=== PATIENT | female | born 1960 | race Caucasian/White ===

== ENCOUNTER 2018-01-06 15:28 | Inpatient (IN) | payer BC, MEDICAID ==
[2018-01-06] MEDS ORDERED: Sodium Chloride 0.9% 1,000 ML IV ONE (16:18)
--- NOTE | 2018-01-06 16:22 | C.PDOC ---
History Of Present Illness 57 yr old female with PMHx of HTN, presents to the ER with complaints of epigastric/RUQ pain for the past 1 week. Patient states the pain is constant and denies any exacerbating or reliving factors. Patient states she was seen by her PMD 3 days ago and had a US done but is unsure of the results. Patient denies fever, chills, chest pain, SOB, nausea, vomiting, diarrhea, dysuria, incontinence, weakness or numbness. Time Seen by Provider: 01/06/18 16:07 Chief Complaint (Nursing): Abdominal Pain History Per: Patient History/Exam Limitations: no limitations Onset/Duration Of Symptoms: Days (1 week) Location Of Pain/Discomfort: RUQ, Epigastric Past Medical History Reviewed: Historical Data, Nursing Documentation, Vital Signs Vital Signs: Last Vital Signs Temp 99.4 F 01/06/18 15:50 Pulse 86 01/06/18 15:50 Resp 18 01/06/18 15:50 BP 163/90 H 01/06/18 15:50 Pulse Ox 98 01/06/18 18:42 - Medical History PMH: HTN - [facility] Procedures CLOSED ENDOSCOPIC BIOPSY OF LARGE INTESTINE (03/04/14) Family History: States: No Known Family Hx - Social History Hx Alcohol Use: No Hx Substance Use: No - Immunization History Hx Tetanus Toxoid Vaccination: No Hx Influenza Vaccination: No Hx Pneumococcal Vaccination: No Review Of Systems Except As Marked, All Systems Reviewed And Found Negative. Constitutional: Negative for: Fever, Chills Cardiovascular: Negative for: Chest Pain Respiratory: Negative for: Shortness of Breath Gastrointestinal: Positive for: Abdominal Pain (epigastric/RUQ pain). Negative for: Nausea, Vomiting, Diarrhea Genitourinary: Negative for: Dysuria, Incontinence Neurological: Negative for: Weakness, Numbness Physical Exam - Physical Exam Appears: Non-toxic, No Acute Distress Skin: Warm, Dry Head: Atraumatic, Normacephalic Eye(s): bilateral: Scleral Icterus Oral Mucosa: Moist Tongue: Other (+ yellowing under the tongue) Cardiovascular: No Murmur Respiratory: Normal Breath Sounds, No Rales, No Rhonchi, No Stridor, No Wheezing Gastrointestinal/Abdominal: Bowel Sounds (normal), Soft, Tenderness (epigastric) , No Distention, No Guarding, No Rebound, Other (+ Plata - McBurny) Extremity: Normal ROM, No Swelling Neurological/Psych: Oriented x3, Normal Speech ED Course And Treatment - Laboratory Results Result Diagrams: 01/06/18 17:01 01/06/18 17:01 ECG: Interpreted By Me, Viewed By Me ECG Rhythm: Sinus Rhythm Interpretation Of ECG: LVH. Left atrial enlargement. Nonspecific T wave changes. Rate From EC (BPM) O2 Sat by Pulse Oximetry: 98 (RA) Pulse Ox Interpretation: Normal - CT Scan/US US - Gallbladder Other Rad Studies (CT/US): Read By Radiologist, Radiology Report Reviewed CT/US Interpretation: HISTORY: ruq pain. COMPARISON: None available. TECHNIQUE: Sonographic evaluation of the right upper quadrant of the abdomen. FINDINGS: Examination limited by habitus. LIVER: Measures 19.3 cm in length. Echogenic liver may be seen in setting of hepatic parenchymal disease or fatty infiltration. 1.3 x 1.7 x 1.4 cm hypoechoic lesion within the left hepatic lobe , indeterminate. Main portal vein appears patent with normal directional flow. No intrahepatic bile duct dilatation. GALLBLADDER: Gallstones. Gallbladder sludge. Gallbladder wall appears top normal in thickness measuring approximately 3 mm. Trace pericholecystic edema. Negative sonographic Plata's sign as assessed by the biomedical engineering professor. COMMON BILE DUCT: Measures approximately 1 cm. PANCREAS: Not well-visualized. RIGHT KIDNEY: Measures 10.3 x 4.4 x 4.6 cm. No obstructing calculus or hydronephrosis identified. AORTA: Limited visualization appears grossly unremarkable. IVC: Limited visualization appears grossly unremarkable. OTHER FINDINGS: None . IMPRESSION: Examination limited by habitus. 1.3 x 1.7 x 1.4 cm hypoechoic lesion within the left hepatic lobe, indeterminate. Hepatomegaly. Echogenic liver may be seen in setting of hepatic parenchymal disease or fatty infiltration. Dilated common bile duct. Gallstones. Gallbladder sludge. Gallbladder wall appears top normal in thickness measuring approximately 3 mm. Trace pericholecystic edema. Correlate clinically for possibility of cholecystitis. CXR Other Rad Studies (CT/US): Read By Radiologist, Radiology Report Reviewed CT/US Interpretation: HISTORY: abd pain. COMPARISON: None available. TECHNIQUE: Chest, one view. FINDINGS: Examination limited by habitus. LUNGS : No focal consolidation. Please note that chest x-ray has limited sensitivity for the detection of pulmonary masses. PLEURA: No significant pleural effusion identified. No definite pneumothorax . CARDIOVASCULAR: Right hilar prominence. Heart size appears top normal. Atherosclerotic calcifications of the aorta. OSSEOUS STRUCTURES: Postsurgical changes of the right humeral head. VISUALIZED UPPER ABDOMEN: Unremarkable. OTHER FINDINGS: None. IMPRESSION: Right hilar prominence. Medical Decision Making Medical Decision Making: IMPRESSION: Abdominal pain PLAN: * US - Gallbladder * CXR * EKG * Labs * Pepcid ICP * Toradol IVP * Zofran IVP * Sodium Chloride IV NOTE: * Patient admitted under Dr. Lunsford. * Dr. Leonardo and surgical first assistant called. Disposition Discussed With : Mirlande Lunsford Doctor Will See Patient In The: Hospital Counseled Patient/Family Regarding: Studies Performed, Diagnosis - Disposition Disposition: HOSPITALIZED Disposition Time: 18:42 Condition: STABLE Forms: [facility] (Bangladeshi) - Clinical Impression Clinical Impression: Cholecystitis, Pancreatitis - Scribe Statement The provider has reviewed the documentation as recorded by the Jorge A Rangel Provider Attestation: All medical record entries made by the Jorge A were at my direction and personally dictated by me. I have reviewed the chart and agree that the record accurately reflects my personal performance of the history, physical exam, medical decision making, and the department course for this patient. I have also personally directed, reviewed, and agree with the discharge instructions and disposition.
--- NOTE | 2018-01-06 17:03 | RAD ---
HISTORY: abd pain COMPARISON: None available. TECHNIQUE: Chest, one view. FINDINGS: Examination limited by habitus. LUNGS: No focal consolidation. Please note that chest x-ray has limited sensitivity for the detection of pulmonary masses. PLEURA: No significant pleural effusion identified. No definite pneumothorax . CARDIOVASCULAR: Right hilar prominence. Heart size appears top normal. Atherosclerotic calcifications of the aorta. OSSEOUS STRUCTURES: Postsurgical changes of the right humeral head. VISUALIZED UPPER ABDOMEN: Unremarkable. OTHER FINDINGS: None. IMPRESSION: Right hilar prominence.
[2018-01-06] MEDS ORDERED: Sodium Chloride 0.9% 1,000 ML ONE (17:04)
[2018-01-06 17:05] LABS: BASO % 0.4 % (0.0-2.0); EOS # 0.1 K/uL (0.0-0.7); EOS % 0.7 % (0.0-4.0); HEMOGLOBIN 14.9 g/dL (11.0-16.0); LYMPH # 2.9 K/uL (1.0-4.3); LYMPH % 28.4 % (20.0-40.0); MEAN CELL VOLUME 94.4 fL (81.0-99.0); MEAN CORPUSCULAR HEMOGLOBIN 32.2 pg (27.0-31.0); MEAN CORPUSCULAR HGB CONC 34.1 g/dL (33.0-37.0); MEAN PLATELET VOLUME 9.6 fL (7.2-11.7); MONO # 0.7 K/uL (0.0-0.8); MONO % 7.1 % (0.0-10.0); NEUT # 6.6 K/uL (1.8-7.0); NEUT % 63.4 % (50.0-75.0); RBC 4.63 Mil/uL (3.80-5.20); RED CELL DISTRIBUTION WIDTH 15.1 % (11.5-14.5); WHITE BLOOD COUNT 10.4 K/uL (4.8-10.8)
[2018-01-06 17:19] LABS: ALB/GLOB RATIO 1.1 (1.0-2.1); ALBUMIN 4.2 g/dL (3.5-5.0); ALT/SGPT 517 U/L (9-52); AST/SGOT 289 U/L (14-36); BLOOD UREA NITROGEN 15 mg/dL (7-17); CALCIUM 9.5 mg/dl (8.6-10.4); GFR AFRICAN-AMERICAN > 60; GFR NON-AFRICAN AMERICAN > 60; LIPASE 1348 U/L (23-300)
--- NOTE | 2018-01-06 18:31 | US ---
HISTORY: ruq pain COMPARISON: None available. TECHNIQUE: Sonographic evaluation of the right upper quadrant of the abdomen. FINDINGS: Examination limited by habitus. LIVER: Measures 19.3 cm in length. Echogenic liver may be seen in setting of hepatic parenchymal disease or fatty infiltration. 1.3 x 1.7 x 1.4 cm hypoechoic lesion within the left hepatic lobe, indeterminate. Main portal vein appears patent with normal directional flow. No intrahepatic bile duct dilatation. GALLBLADDER: Gallstones. Gallbladder sludge. Gallbladder wall appears top normal in thickness measuring approximately 3 mm. Trace pericholecystic edema. Negative sonographic Plata's sign as assessed by the undercutter. COMMON BILE DUCT: Measures approximately 1 cm. PANCREAS: Not well-visualized. RIGHT KIDNEY: Measures 10.3 x 4.4 x 4.6 cm. No obstructing calculus or hydronephrosis identified. AORTA: Limited visualization appears grossly unremarkable. IVC: Limited visualization appears grossly unremarkable. OTHER FINDINGS: None . IMPRESSION: Examination limited by habitus. 1.3 x 1.7 x 1.4 cm hypoechoic lesion within the left hepatic lobe, indeterminate. Hepatomegaly. Echogenic liver may be seen in setting of hepatic parenchymal disease or fatty infiltration. Dilated common bile duct. Gallstones. Gallbladder sludge. Gallbladder wall appears top normal in thickness measuring approximately 3 mm. Trace pericholecystic edema. Correlate clinically for possibility of cholecystitis.
[2018-01-06 18:40] LABS: SQUAMOUS EPITHIAL 1 /hpf (0-5); URINE BACTERIA RARE (<OCC); URINE BILIRUBIN NEGATIVE (NEGATIVE); URINE BLOOD NEGATIVE (NEGATIVE); URINE CLARITY Clear (Clear); URINE COLOR Yellow (YELLOW); URINE GLUCOSE (UA) NORMAL (Normal); URINE LEUKOCYTE ESTERASE NEG Leu/uL (Negative); URINE PROTEIN NEGATIVE (NEGATIVE); URINE UROBILINOGEN NORMAL mg/dL (0.2-1.0)
[2018-01-06] MEDS ORDERED: Piperacillin/Tazobact 3.375 GM in Sodium Chloride 100 ML IVPB STA (18:44)
[2018-01-06] MEDS ORDERED: Piperacillin/Tazobact 3.375 gm 100 ML IVPB ONE (18:49)
--- NOTE | 2018-01-06 20:09 | CP.PCM.HP ---
History of Present Illness - History of Present Illness History of Present Illness: COMPREHENSIVE HISTORY & PHYSICAL EXAM HPI FOR FEW DAYS PT. IS C/O EPIGASTRIC PAIN RADIATING TO LEFT UPPER QUADRANT . PAIN IS CONSTANT WITH GRADE 7 (1-10) A/W NAUSEA AND VOMITING PAIN RELIEVED WITH PO ANALGESICS CT OF ABD SHOWED GALL STONES/SLUDGE AND PERICOLIC FLUID PAST HIST. HTN PERSONAL HIST: Smoking. N Alcohol. N Allergy N Travel_- . FAMILY HIST : ROS : Constitutional: Negative for weight change, chills, night sweats, fatigue and usage of assist device. Eyes: Negative for redness, swelling, itching, discharge, vision changes, blurry vision, double vision, glaucoma, cataracts, Ears: Negative for hearing loss, ringing, , tinnitus, vertigo Nose: Negative for rhinorrhea, stuffiness, sniffing, itching, postnasal drip, discoloration, nasal congestion and epistaxis. Throat: Negative for throat clearing, sore throat, hoarseness, difficulty swallowing and difficulty speaking. Respiratory: Negative for cough, , sputum production, chest tightness, wheezing, pleuritic chest pain ,daytime somnolence, chronic cough, hemoptysis, snoring at night, Cardiovascular: Negative for chest pain, palpitations, orthopnea, PND, Edema of legs, leg cramps, angina, claudication, , irregular heartbeat, Neurology: Negative for irritability, muscle weakness, numbness and tingling, seizures, tremors, migraines, slurred speech, syncope, memory loss, mood changes , recurrent headaches Gastrointestinal: Negative for difficulty swallowing, diarrhea, constipation, black stools, rectal bleeding, POS nausea, flatulence, reflux, poor appetite, NO changes in bowel habits, POS abdominal pain Genitourinary: Negative for frequent urination, hematuria, discharge, incontinence, urinary retention, frequent UTI, Psychiatric: Negative for depression, anxiety/panic, suicidal tendencies, Musculoskeletal: Negative for swollen joints, back pain, , neck pain, morning stiffness of joints, . Skin: Negative for rash, ulcers, itching, dry skin and pigmented lesions. P/E: Constitutional: Appears stated age and in no apparent distress. Head: Normocephalic. Ears: External ear canals patent without inflammation. Tympanic membranes intact with normal light reflex and landmark. Eyes: Pupils are central, bilaterally equal, symmetrical and reacts to light with normal movements and no icterus or pallor. Nose: External nares are patent. Mucosa is pink Mouth-Throat: Good general appearance and condition. No post-pharyngeal/oropharyngeal erythema and tonsillar hypertrophy. Good dental hygiene. Neck-Lymphatic: Neck is supple with normal ROM, no thyromegaly, lymph nodes or masses. JVD is normal with no carotid bruit. Lungs: Clear to percussion and auscultation with bilateral normal air entry. Cardiovascular: S1 and S2 are normal with no murmurs, gallops and rub. GI Exam: No hepatomegaly. Abdomen is soft and RUQ tender. No Organomegaly , masses or hernias are evident and bowel sounds are normal and active. Neurology: Higher function and all cranial nerves intact, with no gross motor or sensory deficit. Superficial and deep reflexes are normal with downwards planters. No cerebellar deficit with normal gait. Musculoskeletal: No tender spots with normal curvature of the spine with no swelling or restricted ROM of the small and large joints. Extremities: Homans sign absent. Intact pulses with no pitting edema, calf tenderness or skin color changes. Skin: No rash, eruptions or abnormal skin pigmentation LAB/RADIOLOGY: ASSESMENT : ACUTE CHOLECYSTITIS WITH GALL STONE PLAN: NPO/IV FLUID/AB PER SURGERY Present on Admission - Present on Admission Any Indicators Present on Admission: No Past Patient History - Infectious Disease Hx of Infectious Diseases: None - Past Social History Smoking Status: Never Smoked - CARDIAC Hx Hypertension: Yes - PSYCHIATRIC Hx Substance Use: No - SURGICAL HISTORY Hx Surgeries: Yes Hx Section: Yes (x 1 1998) Other/Comment: hx of right shoulder surgery - ANESTHESIA Hx Anesthesia: Yes Hx Anesthesia Reactions: No Hx Malignant Hyperthermia: No Meds Allergies/Adverse Reactions: Allergies Allergy/AdvReac Type Severity Reaction Status Date / Time No Known Allergies Allergy Verified 01/06/18 15:57 Results - Vital Signs Recent Vital Signs: Last Vital Signs Temp 99.4 F 01/06/18 15:50 Pulse 86 01/06/18 15:50 Resp 18 01/06/18 15:50 BP 163/90 H 01/06/18 15:50 Pulse Ox 98 01/06/18 18:44 - Labs Result Diagrams: 01/07/18 07:05 01/07/18 07:05 Labs: Laboratory Results - last 24 hr 01/06/18 01/06/18 01/06/18 17:01 17:01 17:01 WBC 10.4 RBC 4.63 Hgb 14.9 Hct 43.7 MCV 94.4 MCH 32.2 H MCHC 34.1 RDW 15.1 H Plt Count 206 MPV 9.6 Neut % (Auto) 63.4 Lymph % (Auto) 28.4 [place] % (Auto) 7.1 Eos % (Auto) 0.7 Baso % (Auto) 0.4 Neut # (Auto) 6.6 Lymph # (Auto) 2.9 [place] # (Auto) 0.7 Eos # (Auto) 0.1 Baso # (Auto) 0.0 Sodium 139 Potassium 3.9 Chloride 98 Carbon Dioxide 26 Anion Gap 20 BUN 15 Creatinine 0.8 Est GFR ( Amer) > 60 Est GFR (Non-Af Amer) > 60 Random Glucose 108 H Lactic Acid 1.7 Calcium 9.5 Total Bilirubin 5.3 H AST 289 H ALT 517 H Alkaline Phosphatase 290 H Troponin I < 0.0120 Total Protein 8.2 Albumin 4.2 Globulin 4.0 H Albumin/Globulin Ratio 1.1 Lipase 1348 H Urine Color Urine Clarity Urine pH Ur Specific [place] Urine Protein Urine Glucose (UA) Urine Ketones Urine Blood Urine Nitrate Urine Bilirubin Urine Urobilinogen Ur Leukocyte Esterase Urine WBC (Auto) Urine RBC (Auto) Ur Squamous Epith Cells Urine Bacteria 01/06/18 18:34 WBC RBC Hgb Hct MCV MCH MCHC RDW Plt Count MPV Neut % (Auto) Lymph % (Auto) [place] % (Auto) Eos % (Auto) Baso % (Auto) Neut # (Auto) Lymph # (Auto) [place] # (Auto) Eos # (Auto) Baso # (Auto) Sodium Potassium Chloride Carbon Dioxide Anion Gap BUN Creatinine Est GFR ( Amer) Est GFR (Non-Af Amer) Random Glucose Lactic Acid Calcium Total Bilirubin AST ALT Alkaline Phosphatase Troponin I Total Protein Albumin Globulin Albumin/Globulin Ratio Lipase Urine Color Yellow Urine Clarity Clear Urine pH 6.0 Ur Specific [place] 1.006 Urine Protein Negative Urine Glucose (UA) Normal Urine Ketones Negative Urine Blood Negative Urine Nitrate Negative Urine Bilirubin Negative Urine Urobilinogen Normal Ur Leukocyte Esterase Neg Urine WBC (Auto) 3 Urine RBC (Auto) < 1 Ur Squamous Epith Cells 1 Urine Bacteria Rare
--- NOTE | 2018-01-06 20:52 | CP.PCM.CON ---
History of Present Illness - History of Present Illness History of Present Illness: INFECTIOUS DISEASE CONSULT; HPI; 57-year-old female with no past significant medical history except for hypertension who was admitted 01/06/18 with abdominal pains for the last one week. Pain described was sharp and epigastric in nature with some radiation to the left side/flank and hip. Patient states she denies any nausea vomiting or diarrhea or constipation. No sets previous episodes in the past. Patient has history of 18 years ago and right shoulder surgery. Patient denies any fever or chills. Admits to poor appetite and headache. Patient denies any cough, shortness of breath, chest pain. Patient was given a dose of Zosyn 3.375 while in the ER. Blood cultures were obtained. Patient was found to be icteric with total bilirubin of 5.3, AST of 299, ALT 517 , alkaline phosphatase 290. Serum lipase was 1348. Abdominal ultrasound showed hepatomegaly dilated CBD , gallstones and trace pericholecystic edema suggestive of cholecystitis. Chest x-ray was unremarkable except for right hilar prominence. Infectious disease consultation requested by PMD for gallstone pancreatitis/and acute cholecystitis. PMH: HTN PSH: x 1, R shoulder surgery All: NKDA SH: Rare ETOH use, denies tobacco or illicit drug use FH: Gallstones (mother) Review of Systems - Constitutional Constitutional: absent: Chills, Fever - EENT Eyes: absent: Change in Vision Nose/Mouth/Throat: Dry Mouth. absent: Mouth Lesions, Odynophagia, Sore Throat - Breasts Breasts: As Per HPI - Cardiovascular Cardiovascular: absent: Chest Pain, Leg Edema, Syncope - Respiratory Respiratory: absent: Cough, Hemoptysis - Gastrointestinal Gastrointestinal: Abdominal Pain (EPIGASTRIC AND LUQ.). absent: Constipation, Diarrhea, Nausea, Vomiting - Genitourinary Genitourinary: absent: Dysuria, Pyuria, Urinary Frequency - Menstruation Menstruation: Post Menopausal - Musculoskeletal Musculoskeletal: absent: Arthralgias, Back Pain - Neurological Neurological: Headaches, Weakness - Endocrine Endocrine: Fatigue - Hematologic/Lymphatic Hematologic: As Per HPI. absent: Lymphadenopathy Past Patient History - Infectious Disease Hx of Infectious Diseases: None - Past Social History Smoking Status: Never Smoked - CARDIAC Hx Hypertension: Yes - PSYCHIATRIC Hx Substance Use: No - SURGICAL HISTORY Hx Surgeries: Yes Hx Section: Yes (x 1 1998) Other/Comment: hx of right shoulder surgery - ANESTHESIA Hx Anesthesia: Yes Hx Anesthesia Reactions: No Hx Malignant Hyperthermia: No Meds Allergies/Adverse Reactions: Allergies Allergy/AdvReac Type Severity Reaction Status Date / Time No Known Allergies Allergy Verified 01/06/18 15:57 Physical Exam - Constitutional Appears: No Acute Distress - Head Exam Head Exam: NORMAL INSPECTION - Eye Exam Eye Exam: EOMI, Scleral icterus - ENT Exam ENT Exam: Normal Oropharynx - Respiratory Exam Respiratory Exam: Clear to Auscultation Bilateral - Cardiovascular Exam Cardiovascular Exam: REGULAR RHYTHM, +S1, +S2 - GI/Abdominal Exam GI & Abdominal Exam: Normal Bowel Sounds, Soft, Tenderness (EPIGASTRIC AND LEFT UPPER QUADRANT, NO MASS PALPABLE). absent: Distended, Organomegaly - Extremities Exam Extremities exam: Positive for: pedal pulses present. Negative for: calf tenderness, pedal edema - Neurological Exam Neurological exam: Alert, CN II-XII Intact, Oriented x3, Reflexes Normal - Skin Skin Exam: Normal Color, Warm Results - Vital Signs Recent Vital Signs: Last Vital Signs Temp 98.6 F 01/06/18 20:34 Pulse 78 01/06/18 20:34 Resp 16 01/06/18 20:34 BP 149/82 01/06/18 20:34 Pulse Ox 97 01/06/18 20:34 - Labs Result Diagrams: 01/08/18 07:04 01/08/18 07:04 Labs: Laboratory Results - last 24 hr 01/06/18 01/06/18 01/06/18 17:01 17:01 17:01 WBC 10.4 RBC 4.63 Hgb 14.9 Hct 43.7 MCV 94.4 MCH 32.2 H MCHC 34.1 RDW 15.1 H Plt Count 206 MPV 9.6 Neut % (Auto) 63.4 Lymph % (Auto) 28.4 [place] % (Auto) 7.1 Eos % (Auto) 0.7 Baso % (Auto) 0.4 Neut # (Auto) 6.6 Lymph # (Auto) 2.9 [place] # (Auto) 0.7 Eos # (Auto) 0.1 Baso # (Auto) 0.0 Sodium 139 Potassium 3.9 Chloride 98 Carbon Dioxide 26 Anion Gap 20 BUN 15 Creatinine 0.8 Est GFR ( Amer) > 60 Est GFR (Non-Af Amer) > 60 Random Glucose 108 H Lactic Acid 1.7 Calcium 9.5 Total Bilirubin 5.3 H AST 289 H ALT 517 H Alkaline Phosphatase 290 H Troponin I < 0.0120 Total Protein 8.2 Albumin 4.2 Globulin 4.0 H Albumin/Globulin Ratio 1.1 Lipase 1348 H Urine Color Urine Clarity Urine pH Ur Specific [place] Urine Protein Urine Glucose (UA) Urine Ketones Urine Blood Urine Nitrate Urine Bilirubin Urine Urobilinogen Ur Leukocyte Esterase Urine WBC (Auto) Urine RBC (Auto) Ur Squamous Epith Cells Urine Bacteria 01/06/18 18:34 WBC RBC Hgb Hct MCV MCH MCHC RDW Plt Count MPV Neut % (Auto) Lymph % (Auto) [place] % (Auto) Eos % (Auto) Baso % (Auto) Neut # (Auto) Lymph # (Auto) [place] # (Auto) Eos # (Auto) Baso # (Auto) Sodium Potassium Chloride Carbon Dioxide Anion Gap BUN Creatinine Est GFR ( Amer) Est GFR (Non-Af Amer) Random Glucose Lactic Acid Calcium Total Bilirubin AST ALT Alkaline Phosphatase Troponin I Total Protein Albumin Globulin Albumin/Globulin Ratio Lipase Urine Color Yellow Urine Clarity Clear Urine pH 6.0 Ur Specific [place] 1.006 Urine Protein Negative Urine Glucose (UA) Normal Urine Ketones Negative Urine Blood Negative Urine Nitrate Negative Urine Bilirubin Negative Urine Urobilinogen Normal Ur Leukocyte Esterase Neg Urine WBC (Auto) 3 Urine RBC (Auto) < 1 Ur Squamous Epith Cells 1 Urine Bacteria Rare - Imaging and Cardiology US - abdomen Status: Report reviewed by me (SEE REPORT.) Assessment & Plan (1) Abdominal pain Status: Acute (2) Cholecystitis Status: Acute (3) Pancreatitis Status: Acute - Assessment and Plan (Free Text) Assessment: IMPRESSION; . ABDOMINAL PAIN. . ACUTE CHOLECYSTITIS. . GALLSTONE ASSOCIATED PANCREATITIS. . HTN. PLAN; PANCULTURES cbc WITH DIFFERENTIAL IN A.M. HEPATITIS PANEL IN AM fOLLOW-UP LFTS. AM SERUM AMYLASE AND LIPASE IN A.M. NPO. START iv CEFEPIME 1 G iv PIGGYBACK EVERY 12 HOURLY 01/06/18. GALLBLADDER ULTRASOUND IN PROGRESS. SURGICAL CONSULT IN PROGRESS. WE'LL FOLLOW ALONG WITH YOU AND MAKE FURTHER RECOMMENDATIONS NEEDED.
--- NOTE | 2018-01-06 21:29 | CP.PCM.CON ---
<Sheree Schumacher - Last Filed: 01/07/18 14:32> History of Present Illness - History of Present Illness History of Present Illness: General surgery consult for Dr. Jim Schumacher, PGY-1 Pt S & E at bedside. 57F w/PMH sig for HTN consulted for abdominal pain x 8 days. Pain was epigastric with radiation to left side/flank/hip. Pain was constant, severe, alleviated by pain medications. Admits to poor appetite, headache. Denies N & V , F & C, constipation, diarrhea, chest pain, other complaints. IN ED Ab u/s w/dilated CBD, trace pericholecystic fluid, no GB wall thickening, T bili 5.3, AST 289, ALT 517, ALP 290, lipase 1348. No leukocytosis, afebrile. PMH: HTN PSH: x 1, R shoulder surgery All: NKDA SH: Rare ETOH use, denies tobacco or illicit drug use FH: Gallstones (mother) Review of Systems - Review of Systems All systems: reviewed and no additional remarkable complaints except - Constitutional Constitutional: absent: Chills, Fever - EENT Eyes: absent: Change in Vision Nose/Mouth/Throat: absent: Sore Throat - Cardiovascular Cardiovascular: absent: Chest Pain - Respiratory Respiratory: absent: Cough - Gastrointestinal Gastrointestinal: Abdominal Pain. absent: Constipation, Diarrhea, Nausea, Vomiting - Genitourinary Genitourinary: absent: Change in Urinary Stream - Integumentary Integumentary: absent: Rash - Psychiatric Psychiatric: Change in Appetite (decreased) Past Patient History - Infectious Disease Hx of Infectious Diseases: None - Past Social History Smoking Status: Never Smoked - CARDIAC Hx Hypertension: Yes - PSYCHIATRIC Hx Substance Use: No - SURGICAL HISTORY Hx Surgeries: Yes Hx Section: Yes (x 1 1998) Other/Comment: hx of right shoulder surgery - ANESTHESIA Hx Anesthesia: Yes Hx Anesthesia Reactions: No Hx Malignant Hyperthermia: No Meds Home Medications: Home Medication List Medication Instructions Recorded Confirmed Type Acetaminophen [Tylenol 325mg tab] 650 mg PO Q6 PRN tab 01/10/18 Rx traMADol [Ultram] 50 mg PO TID PRN #10 tab 01/10/18 Rx Allergies/Adverse Reactions: Allergies Allergy/AdvReac Type Severity Reaction Status Date / Time No Known Allergies Allergy Verified 01/06/18 15:57 - Medications Medications: Current Medications Cefepime HCl (Maxipime Iv 1 Gm Premix) 1 gm in 50 mls @ 100 mls/hr IVPB Q12H [facility] PRN Reason: Protocol Physical Exam - Constitutional Appears: Non-toxic, No Acute Distress - Head Exam Head Exam: ATRAUMATIC, NORMAL INSPECTION, NORMOCEPHALIC - Eye Exam Eye Exam: EOMI, Normal appearance - ENT Exam ENT Exam: Mucous Membranes Moist, Normal Exam - Neck Exam Neck exam: Positive for: Full Rom, Normal Inspection - Respiratory Exam Respiratory Exam: Clear to Auscultation Bilateral, NORMAL BREATHING PATTERN - Cardiovascular Exam Cardiovascular Exam: REGULAR RHYTHM, +S1, +S2 - GI/Abdominal Exam GI & Abdominal Exam: Normal Bowel Sounds, Soft. absent: Distended (obese), Firm , Guarding, Tenderness - Extremities Exam Extremities exam: Positive for: normal inspection - Neurological Exam Neurological exam: Alert, CN II-XII Intact, Oriented x3 - Psychiatric Exam Psychiatric exam: Normal Affect, Normal Mood - Skin Skin Exam: Dry, Intact, Normal Color, Warm Results - Vital Signs Recent Vital Signs: Last Vital Signs Temp 98.6 F 01/06/18 20:34 Pulse 78 01/06/18 20:34 Resp 16 01/06/18 20:34 BP 149/82 01/06/18 20:34 Pulse Ox 97 01/06/18 20:34 - Labs Result Diagrams: 01/06/18 17:01 01/06/18 17:01 Labs: Laboratory Results - last 24 hr 01/06/18 01/06/18 01/06/18 17:01 17:01 17:01 WBC 10.4 RBC 4.63 Hgb 14.9 Hct 43.7 MCV 94.4 MCH 32.2 H MCHC 34.1 RDW 15.1 H Plt Count 206 MPV 9.6 Neut % (Auto) 63.4 Lymph % (Auto) 28.4 [place] % (Auto) 7.1 Eos % (Auto) 0.7 Baso % (Auto) 0.4 Neut # (Auto) 6.6 Lymph # (Auto) 2.9 [place] # (Auto) 0.7 Eos # (Auto) 0.1 Baso # (Auto) 0.0 Sodium 139 Potassium 3.9 Chloride 98 Carbon Dioxide 26 Anion Gap 20 BUN 15 Creatinine 0.8 Est GFR ( Amer) > 60 Est GFR (Non-Af Amer) > 60 Random Glucose 108 H Lactic Acid 1.7 Calcium 9.5 Total Bilirubin 5.3 H AST 289 H ALT 517 H Alkaline Phosphatase 290 H Troponin I < 0.0120 Total Protein 8.2 Albumin 4.2 Globulin 4.0 H Albumin/Globulin Ratio 1.1 Lipase 1348 H Urine Color Urine Clarity Urine pH Ur Specific [place] Urine Protein Urine Glucose (UA) Urine Ketones Urine Blood Urine Nitrate Urine Bilirubin Urine Urobilinogen Ur Leukocyte Esterase Urine WBC (Auto) Urine RBC (Auto) Ur Squamous Epith Cells Urine Bacteria 01/06/18 18:34 WBC RBC Hgb Hct MCV MCH MCHC RDW Plt Count MPV Neut % (Auto) Lymph % (Auto) [place] % (Auto) Eos % (Auto) Baso % (Auto) Neut # (Auto) Lymph # (Auto) [place] # (Auto) Eos # (Auto) Baso # (Auto) Sodium Potassium Chloride Carbon Dioxide Anion Gap BUN Creatinine Est GFR ( Amer) Est GFR (Non-Af Amer) Random Glucose Lactic Acid Calcium Total Bilirubin AST ALT Alkaline Phosphatase Troponin I Total Protein Albumin Globulin Albumin/Globulin Ratio Lipase Urine Color Yellow Urine Clarity Clear Urine pH 6.0 Ur Specific [place] 1.006 Urine Protein Negative Urine Glucose (UA) Normal Urine Ketones Negative Urine Blood Negative Urine Nitrate Negative Urine Bilirubin Negative Urine Urobilinogen Normal Ur Leukocyte Esterase Neg Urine WBC (Auto) 3 Urine RBC (Auto) < 1 Ur Squamous Epith Cells 1 Urine Bacteria Rare Assessment & Plan - Assessment and Plan (Free Text) Assessment: 57F w/abdominal pain 2/2 gallstone pancreatitis Plan: IVF Pain control NPO Monitor LFTs recommend GI consult Further recs as per attending evaluation DW attending Winsome, PGY-1 - Date & Time Date: 01/06/18 Time: 21:28 <Garry Leonardo - Last Filed: 01/11/18 19:51> Results - Vital Signs Recent Vital Signs: Last Vital Signs Temp 98.1 F 01/10/18 15:15 Pulse 81 01/10/18 15:15 Resp 20 01/10/18 15:15 BP 156/82 H 01/10/18 15:15 Pulse Ox 97 01/10/18 15:15 - Labs Result Diagrams: 01/10/18 07:42 01/10/18 07:42 Attending/Attestation - Attestation I have personally seen and examined this patient.: Yes I have fully participated in the care of the patient.: Yes I have reviewed all pertinent clinical information: Yes Notes (Text): Pt was seen and examined at bedside Agree with above note and assessment Pt with Right upper quadrant pain Abdomen: Soft ,NT, RUQ tenderness Labs and radiology reviewed Ass: GS pancreatitis Plan: Conservative management at present NPO, IVF IV antibiotics GI consult c.w current mx Plan d.w pt in detail Risk and benefit explained in detail.
[2018-01-06] MEDS: Lactated Ringer's 1,000 ML IV SCH (22:05)
[2018-01-06] MEDS: Cefepime IV 1 gm in Dextrose 1 GM/50 ML BAG IVPB SCH (22:40)
[2018-01-07] MEDS: Lactated Ringer's 1,000 ML IV SCH ×3 (02:16→11:01)
--- NOTE | 2018-01-07 05:17 | CP.PCM.PN ---
<Sheree Schumacher - Last Filed: 01/07/18 14:32> Subjective - Date & Time of Evaluation Date of Evaluation: 01/07/18 Time of Evaluation: 07:15 - Subjective Subjective: General surgery progress note for Dr. Leonardo-Sheree Schumacher, PGY-1 Pt S & E at bedside. Pt reports continued epigastric abdominal pain- no improvement. Denies N & V, F & C. No other complaints overnight. Objective - Vital Signs/Intake and Output Vital Signs (last 24 hours): Temp Pulse Resp BP Pulse Ox 99.1 F 88 20 144/80 95 01/07/18 00:00 01/07/18 00:00 01/07/18 00:00 01/07/18 00:00 01/07/18 00:00 Intake and Output: 01/06/18 01/07/18 18:59 06:59 Intake Total 210 Balance 210 - Medications Medications: Current Medications Acetaminophen (Tylenol 325mg Tab) 650 mg PO Q6 PRN PRN Reason: Pain, moderate (4-7) Cefepime HCl (Maxipime Iv 1 Gm Premix) 1 gm in 50 mls @ 100 mls/hr IVPB Q12H [facility] PRN Reason: Protocol Last Admin: 01/06/18 22:40 Dose: 100 mls/hr Lactated Ringer's (Lactated Ringer's) 1,000 mls @ 210 mls/hr IV .Q4H46M [facility] Last Admin: 01/06/18 22:05 Dose: 210 mls/hr Ketorolac Tromethamine (Toradol) 30 mg IVP Q6 PRN PRN Reason: Pain, severe (8-10) Metoprolol Succinate (Toprol Xl) 100 mg PO DAILY [facility] Pneumococcal Polyvalent Vaccine (Pneumovax 23 Vaccine) 0.5 ml IM .ONCE ONE Stop: 01/09/18 10:01 - Labs Labs: 01/06/18 17:01 01/06/18 17:01 - Constitutional Appears: Non-toxic, No Acute Distress - Head Exam Head Exam: ATRAUMATIC, NORMAL INSPECTION, NORMOCEPHALIC - Eye Exam Eye Exam: EOMI, Normal appearance - ENT Exam ENT Exam: Mucous Membranes Moist, Normal Exam - Neck Exam Neck Exam: Full ROM, Normal Inspection - Respiratory Exam Respiratory Exam: NORMAL BREATHING PATTERN - Cardiovascular Exam Cardiovascular Exam: REGULAR RHYTHM, +S1, +S2 - GI/Abdominal Exam GI & Abdominal Exam: Soft, Tenderness (epigastric). absent: Distended (obese), Firm, Guarding, Rigid, Rebound - Extremities Exam Extremities Exam: Normal Inspection - Neurological Exam Neurological Exam: Alert, Awake, CN II-XII Intact, Oriented x3 - Psychiatric Exam Psychiatric exam: Normal Affect, Normal Mood - Skin Skin Exam: Dry, Intact, Normal Color, Warm Assessment and Plan - Assessment and Plan (Free Text) Assessment: 57F w/gallstone pancreatitis Plan: Cont IVF Cont Pain control NPO FU CMP-Monitor LFTs recommend GI consult Further recs as per attending evaluation Will DW attending Winsome, PGY-1 <Garry Leonardo - Last Filed: 01/11/18 19:50> Objective - Vital Signs/Intake and Output Vital Signs (last 24 hours): Temp Pulse Resp BP Pulse Ox 98.1 F 81 20 156/82 H 97 01/10/18 15:15 01/10/18 15:15 01/10/18 15:15 01/10/18 15:15 01/10/18 15:15 - Labs Labs: 01/10/18 07:42 01/10/18 07:42 PT 12.3 SECONDS (9.7-12.2) H 01/08/18 10:49 INR 1.1 01/08/18 10:49 APTT 32 SECONDS (21-34) 01/08/18 10:49 Attending/Attestation - Attestation I have personally seen and examined this patient.: Yes I have fully participated in the care of the patient.: Yes I have reviewed all pertinent clinical information, including history, physical exam and plan: Yes Notes (Text): Pt was seen and examined at bedside Agree with above note and assessment Pt with GS pancreatitis, improving clinically Labs improving NPO, IVF IV antibiotics c.w current mx Plan d.w pt in detail Risk and benefit explained in detail.
[2018-01-07 07:22] LABS: BASO % 0.4 % (0.0-2.0); EOS # 0.1 K/uL (0.0-0.7); EOS % 0.8 % (0.0-4.0); HEMOGLOBIN 13.3 g/dL (11.0-16.0); LYMPH # 1.9 K/uL (1.0-4.3); MEAN CELL VOLUME 94.4 fL (81.0-99.0); MEAN CORPUSCULAR HGB CONC 33.9 g/dL (33.0-37.0); MEAN PLATELET VOLUME 9.3 fL (7.2-11.7); MONO # 0.5 K/uL (0.0-0.8); MONO % 7.4 % (0.0-10.0); NEUT # 4.6 K/uL (1.8-7.0); NEUT % 64.4 % (50.0-75.0); RBC 4.15 Mil/uL (3.80-5.20); RED CELL DISTRIBUTION WIDTH 14.6 % (11.5-14.5); WHITE BLOOD COUNT 7.2 K/uL (4.8-10.8)
[2018-01-07 08:02] LABS: ALB/GLOB RATIO 1.1 (1.0-2.1); ALBUMIN 3.4 g/dL (3.5-5.0); ALT/SGPT 381 U/L (9-52); AST/SGOT 178 U/L (14-36); BLOOD UREA NITROGEN 13 mg/dL (7-17); CALCIUM 8.7 mg/dl (8.6-10.4); GFR AFRICAN-AMERICAN > 60; GFR NON-AFRICAN AMERICAN > 60; LIPASE 584 U/L (23-300)
[2018-01-07 08:27] LABS: HEPATITIS B SURFACE AG Negative (NEGATIVE)
[2018-01-07 08:32] LABS: HEPATITIS A IGM NEGATIVE (NEGATIVE); HEPATITIS B CORE AB NEGATIVE (NEGATIVE)
[2018-01-07 08:44] LABS: HEPATITIS C ANTIBODY NEGATIVE (NEGATIVE)
[2018-01-07 08:48] LABS: HEPATITIS C ANTIBODY NEGATIVE (NEGATIVE)
[2018-01-07] MEDS: Metoprolol Succinate 100 mg XL Tab PO SCH (09:11)
[2018-01-07] MEDS: Cefepime IV 1 gm in Dextrose 1 GM/50 ML BAG IVPB SCH ×2 (09:18→21:49)
--- NOTE | 2018-01-07 14:27 | CP.PCM.PN ---
Subjective - Date & Time of Evaluation Date of Evaluation: 01/07/18 Time of Evaluation: 14:25 - Subjective Subjective: CHIEF COMPLAINTS TODAY : PAIN RUQ , NAUSEA ROS. HEENT : N. Resp : No cough, wheezing ,pleuritic CP ,or hemoptysis Cardio : No anginal CP, PND, orthopnea, palpitation GI : No diarrhea or GI bleeding . 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 Musculoskel : No joint swelling , Derm : No rash Psych : Normal affect. Ext : No swelling ,calf pain PE. Pt. is alert awake in no distress. V.S As noted in the chart Head ,ear nose,throat and eyes : Normal. Neck : Supple with normal carotids. Lungs: Clear air entry. Heart : S1 & S2 normal with S4. No murmur. Abd : Soft tender with normal bowel sounds. Neuro : Moves all ext. with no localized deficit. Ext : No edema with intact pulses.Non tender calves Derm : No rashes or decubitus ulcer. LABS/RADIOLOGY: ASSESSMENT/PLAN : AWAITING SURGICAL EVAL FOR OR IV AB Objective - Vital Signs/Intake and Output Vital Signs (last 24 hours): Temp Pulse Resp BP Pulse Ox 98.8 F 81 20 138/80 95 01/07/18 08:28 01/07/18 08:28 01/07/18 08:28 01/07/18 08:28 01/07/18 08:28 Intake and Output: 01/07/18 01/07/18 11:59 23:59 Intake Total 1890 1680 Balance 1890 1680 - Medications Medications: Current Medications Acetaminophen (Tylenol 325mg Tab) 650 mg PO Q6 PRN PRN Reason: Pain, moderate (4-7) Cefepime HCl (Maxipime Iv 1 Gm Premix) 1 gm in 50 mls @ 100 mls/hr IVPB Q12H [facility] PRN Reason: Protocol Last Admin: 01/07/18 09:18 Dose: 100 mls/hr Lactated Ringer's (Lactated Ringer's) 1,000 mls @ 210 mls/hr IV .Q4H46M [facility] Last Admin: 01/07/18 11:01 Dose: 210 mls/hr Ketorolac Tromethamine (Toradol) 30 mg IVP Q6 PRN PRN Reason: Pain, severe (8-10) Metoprolol Succinate (Toprol Xl) 100 mg PO DAILY [facility] Last Admin: 01/07/18 09:11 Dose: 100 mg Pneumococcal Polyvalent Vaccine (Pneumovax 23 Vaccine) 0.5 ml IM .ONCE ONE Stop: 01/09/18 10:01 - Labs Labs: 01/07/18 07:05 01/07/18 07:05
[2018-01-07] MEDS: Dextrose 5%/0.45% NS 1,000 ML IV SCH ×2 (16:22→22:25)
--- NOTE | 2018-01-07 19:56 | CP.PCM.PN ---
Subjective - Date & Time of Evaluation Date of Evaluation: 01/07/18 Time of Evaluation: 19:56 - Subjective Subjective: CHIEF COMPLAINTS TODAY : AFEBRILE , presently denies abdominal pain, nausea or vomiting Anxious to eat. NPO PER SURGERY. ROS. HEENT : N. Resp : No cough, wheezing ,pleuritic CP ,or hemoptysis Cardio : No anginal CP, PND, orthopnea, palpitation GI : No abd.pain, n/v ,diarrhea or GI bleeding . 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 Musculoskel : No joint swelling , Derm : No rash Psych : Normal affect. Ext : No swelling ,calf pain PE. Pt. is alert awake in no distress. V.S As noted in the chart Head ,ear nose,throat and eyes : Normal. Neck : Supple with normal carotids. Lungs: Clear air entry. Heart : S1 & S2 normal with S4. No murmur. Abd : Soft non tender with normal bowel sounds. Neuro : Moves all ext. with no localized deficit. Ext : No edema with intact pulses.Non tender calves Derm : No rashes or decubitus ulcer. LABS/RADIOLOGY: REVIEWED LFTS IMPROVING lIPASE IMPROVING. ASSESSMENT IMPRESSION; . ABDOMINAL PAIN. . ACUTE CHOLECYSTITIS. . GALLSTONE ASSOCIATED PANCREATITIS. . HTN. PLAN; NPO. IV FLUIDS ON iv CEFEPIME 1 G iv PIGGYBACK EVERY 12 HOURLY 01/06/18. PER SURGERY, GI CONSULT. PATIENT FOR POSSIBLE SURGERY ON TUESDAY. Objective - Vital Signs/Intake and Output Vital Signs (last 24 hours): Temp Pulse Resp BP Pulse Ox 98.7 F 76 20 146/78 95 01/07/18 16:00 01/07/18 16:00 01/07/18 16:00 01/07/18 16:00 01/07/18 16:00 Intake and Output: 01/07/18 01/08/18 18:59 07:59 Intake Total 3360 Balance 3360 - Medications Medications: Current Medications Acetaminophen (Tylenol 325mg Tab) 650 mg PO Q6 PRN PRN Reason: Pain, moderate (4-7) Cefepime HCl (Maxipime Iv 1 Gm Premix) 1 gm in 50 mls @ 100 mls/hr IVPB Q12H [facility] PRN Reason: Protocol Last Admin: 01/07/18 09:18 Dose: 100 mls/hr Dextrose/Sodium Chloride (Dextrose 5%/0.45% Ns 1000 Ml) 1,000 mls @ 150 mls/hr IV .Q6H40M [facility] Last Admin: 01/07/18 16:22 Dose: 150 mls/hr Ketorolac Tromethamine (Toradol) 30 mg IVP Q6 PRN PRN Reason: Pain, severe (8-10) Metoprolol Succinate (Toprol Xl) 100 mg PO DAILY [facility] Last Admin: 01/07/18 09:11 Dose: 100 mg Pneumococcal Polyvalent Vaccine (Pneumovax 23 Vaccine) 0.5 ml IM .ONCE ONE Stop: 01/09/18 10:01 - Labs Labs: 01/07/18 07:05 01/07/18 07:05
[2018-01-08] MEDS: Dextrose 5%/0.45% NS 1,000 ML IV SCH ×3 (05:46→22:43)
[2018-01-08 07:17] LABS: BASO % 0.6 % (0.0-2.0); EOS # 0.2 K/uL (0.0-0.7); EOS % 3.6 % (0.0-4.0); HEMOGLOBIN 13.4 g/dL (11.0-16.0); LYMPH # 2.1 K/uL (1.0-4.3); LYMPH % 37.1 % (20.0-40.0); MEAN CELL VOLUME 93.9 fL (81.0-99.0); MEAN CORPUSCULAR HEMOGLOBIN 32.3 pg (27.0-31.0); MEAN CORPUSCULAR HGB CONC 34.4 g/dL (33.0-37.0); MEAN PLATELET VOLUME 9.3 fL (7.2-11.7); MONO # 0.4 K/uL (0.0-0.8); NEUT % 51.7 % (50.0-75.0); RBC 4.14 Mil/uL (3.80-5.20); RED CELL DISTRIBUTION WIDTH 14.6 % (11.5-14.5); WHITE BLOOD COUNT 5.8 K/uL (4.8-10.8)
--- NOTE | 2018-01-08 07:19 | CP.PCM.PN ---
<Sheree Schumacher - Last Filed: 01/08/18 16:27> Subjective - Date & Time of Evaluation Date of Evaluation: 01/08/18 Time of Evaluation: 06:50 - Subjective Subjective: General surgery progress note for Dr. Leonardo-Sheree Schumacher, PGY-1 Pt S & E at bedside. Pt reports epigastric ab pain is improved. Denies N & V, F & C, CP. Pt aware she is for surgery tomorrow. Objective - Vital Signs/Intake and Output Vital Signs (last 24 hours): Temp Pulse Resp BP Pulse Ox 98.4 F 75 20 149/77 96 01/08/18 00:00 01/08/18 00:00 01/08/18 00:00 01/08/18 00:00 01/08/18 00:00 Intake and Output: 01/08/18 01/08/18 06:59 18:59 Intake Total 1200 Balance 1200 - Medications Medications: Current Medications Acetaminophen (Tylenol 325mg Tab) 650 mg PO Q6 PRN PRN Reason: Pain, moderate (4-7) Cefepime HCl (Maxipime Iv 1 Gm Premix) 1 gm in 50 mls @ 100 mls/hr IVPB Q12H [facility] PRN Reason: Protocol Last Admin: 01/07/18 21:49 Dose: 100 mls/hr Dextrose/Sodium Chloride (Dextrose 5%/0.45% Ns 1000 Ml) 1,000 mls @ 150 mls/hr IV .Q6H40M [facility] Last Admin: 01/08/18 05:46 Dose: 150 mls/hr Metoprolol Succinate (Toprol Xl) 100 mg PO DAILY [facility] Last Admin: 01/07/18 09:11 Dose: 100 mg Pneumococcal Polyvalent Vaccine (Pneumovax 23 Vaccine) 0.5 ml IM .ONCE ONE Stop: 01/09/18 10:01 - Labs Labs: 01/07/18 07:05 01/07/18 07:05 - Constitutional Appears: Non-toxic, No Acute Distress - Head Exam Head Exam: ATRAUMATIC, NORMAL INSPECTION, NORMOCEPHALIC - Eye Exam Eye Exam: EOMI, Normal appearance - ENT Exam ENT Exam: Mucous Membranes Moist, Normal Exam - Neck Exam Neck Exam: Full ROM, Normal Inspection - Respiratory Exam Respiratory Exam: NORMAL BREATHING PATTERN - Cardiovascular Exam Cardiovascular Exam: REGULAR RHYTHM, +S1, +S2 - GI/Abdominal Exam GI & Abdominal Exam: Soft. absent: Distended (obese), Firm, Guarding, Rigid, Tenderness - Extremities Exam Extremities Exam: Normal Inspection - Neurological Exam Neurological Exam: Alert, Awake, CN II-XII Intact, Oriented x3 - Psychiatric Exam Psychiatric exam: Normal Affect, Normal Mood - Skin Skin Exam: Dry, Intact, Normal Color, Warm Assessment and Plan - Assessment and Plan (Free Text) Assessment: 57F w/gallstone pancreatitis Plan: Cont IVF Cont pain control NPO pMN CLD for now FU labs Plan for cholecystectomy tomorrow consent in chart DW attending Winsome, PGY-1 <Garry Leonardo - Last Filed: 01/11/18 19:52> Objective - Vital Signs/Intake and Output Vital Signs (last 24 hours): Temp Pulse Resp BP Pulse Ox 98.1 F 81 20 156/82 H 97 01/10/18 15:15 01/10/18 15:15 01/10/18 15:15 01/10/18 15:15 01/10/18 15:15 - Labs Labs: 01/10/18 07:42 01/10/18 07:42 PT 12.3 SECONDS (9.7-12.2) H 01/08/18 10:49 INR 1.1 01/08/18 10:49 APTT 32 SECONDS (21-34) 01/08/18 10:49 Attending/Attestation - Attestation I have personally seen and examined this patient.: Yes I have fully participated in the care of the patient.: Yes I have reviewed all pertinent clinical information, including history, physical exam and plan: Yes Notes (Text): Pt was seen and examined at bedside Agree with above note and assessment Pt with resolving GS pancreatitis MRCP tomorrow OR for Lap Cholecystectomy tomorrow NPO, IVF IV antibiotics Repeat LFTs c.w current mx Plan d.w pt in detail Risk and benefit explained in detail.
[2018-01-08 07:57] LABS: ALBUMIN 3.3 g/dL (3.5-5.0); ALT/SGPT 298 U/L (9-52); AST/SGOT 130 U/L (14-36); BLOOD UREA NITROGEN 10 mg/dL (7-17); CALCIUM 8.6 mg/dl (8.6-10.4); GFR AFRICAN-AMERICAN > 60; GFR NON-AFRICAN AMERICAN > 60; LIPASE 324 U/L (23-300)
[2018-01-08] MEDS: Metoprolol Succinate 100 mg XL Tab PO SCH (09:20)
[2018-01-08] MEDS: Cefepime IV 1 gm in Dextrose 1 GM/50 ML BAG IVPB SCH ×2 (09:26→21:28)
[2018-01-08 11:04] LABS: INR 1.1; PROTHROMBIN TIME 12.3 SECONDS (9.7-12.2)
--- NOTE | 2018-01-08 14:19 | CP.PCM.CON ---
<Freda Nagy - Last Filed: 01/08/18 14:10> History of Present Illness - History of Present Illness History of Present Illness: GI Fellow PGY4 Consult Note This is a 57F with pmhx for HTN presenting to ER with abdominal pain for 1 week. She reports epigastric pain with radiation to left side. She described her pain as constant, severe, alleviated by pain medications only. She reports poor appetite but no N & V, F & C, constipation, diarrhea, chest pain, other complaints. No prior episode of pain, no hx of liver disease or jaundice. Imaging showed dilated CBD 1cm, GB wall thickening concerning for cholecystitis , gallstones and sludge. T bili 5.3, AST 289, ALT 517, ALP 290, lipase 1348. No leukocytosis, afebrile. At the time of evaluation today, pt was not having any further abdominal pain and LFTs are improving. ROS: A 12pt ROS was negative except as above. PMH: HTN PSH: x 1, R shoulder surgery SH: Rare ETOH use, denies tobacco or illicit drug use FH: Gallstones (mother) Past Patient History - Infectious Disease Hx of Infectious Diseases: None - Past Social History Smoking Status: Never Smoked - CARDIAC Hx Hypertension: Yes - MUSCULOSKELETAL/RHEUMATOLOGICAL Hx Falls: No - PSYCHIATRIC Hx Substance Use: No - SURGICAL HISTORY Hx Surgeries: Yes Hx Section: Yes (x 1 1998) Other/Comment: hx of right shoulder surgery - ANESTHESIA Hx Anesthesia: Yes Hx Anesthesia Reactions: No Hx Malignant Hyperthermia: No Meds Allergies/Adverse Reactions: Allergies Allergy/AdvReac Type Severity Reaction Status Date / Time No Known Allergies Allergy Verified 01/06/18 15:57 - Medications Medications: Current Medications Acetaminophen (Tylenol 325mg Tab) 650 mg PO Q6 PRN PRN Reason: Pain, moderate (4-7) Cefepime HCl (Maxipime Iv 1 Gm Premix) 1 gm in 50 mls @ 100 mls/hr IVPB Q12H [facility] PRN Reason: Protocol Last Admin: 01/08/18 09:26 Dose: 100 mls/hr Dextrose/Sodium Chloride (Dextrose 5%/0.45% Ns 1000 Ml) 1,000 mls @ 150 mls/hr IV .Q6H40M [facility] Last Admin: 01/08/18 05:46 Dose: 150 mls/hr Metoprolol Succinate (Toprol Xl) 100 mg PO DAILY [facility] Last Admin: 01/08/18 09:20 Dose: 100 mg Pneumococcal Polyvalent Vaccine (Pneumovax 23 Vaccine) 0.5 ml IM .ONCE ONE Stop: 01/09/18 10:01 Physical Exam - Constitutional Appears: Non-toxic, No Acute Distress - Head Exam Head Exam: ATRAUMATIC, NORMAL INSPECTION, NORMOCEPHALIC - Eye Exam Eye Exam: EOMI, Normal appearance, PERRL - ENT Exam ENT Exam: Mucous Membranes Moist - Neck Exam Neck exam: Positive for: Normal Inspection - Respiratory Exam Respiratory Exam: Clear to Auscultation Bilateral, NORMAL BREATHING PATTERN - Cardiovascular Exam Cardiovascular Exam: REGULAR RHYTHM, +S1, +S2 - GI/Abdominal Exam GI & Abdominal Exam: Normal Bowel Sounds, Soft - Rectal Exam Rectal Exam: NORMAL INSPECTION - Extremities Exam Extremities exam: Positive for: normal inspection - Back Exam Back exam: NORMAL INSPECTION - Neurological Exam Neurological exam: Alert, Oriented x3 - Psychiatric Exam Psychiatric exam: Normal Affect, Normal Mood - Skin Skin Exam: Dry, Intact, Normal Color, Warm Results - Vital Signs Recent Vital Signs: Last Vital Signs Temp 98.4 F 01/08/18 00:00 Pulse 75 01/08/18 00:00 Resp 20 01/08/18 00:00 BP 149/77 01/08/18 00:00 Pulse Ox 96 01/08/18 00:00 - Labs Result Diagrams: 01/08/18 07:04 01/08/18 07:04 Labs: Laboratory Results - last 24 hr 01/08/18 01/08/18 01/08/18 07:04 07:04 10:49 WBC 5.8 RBC 4.14 Hgb 13.4 Hct 38.9 MCV 93.9 MCH 32.3 H MCHC 34.4 RDW 14.6 H Plt Count 192 MPV 9.3 Neut % (Auto) 51.7 Lymph % (Auto) 37.1 Blackford % (Auto) 7.0 Eos % (Auto) 3.6 Baso % (Auto) 0.6 Neut # (Auto) 3.0 Lymph # (Auto) 2.1 Blackford # (Auto) 0.4 Eos # (Auto) 0.2 Baso # (Auto) 0.0 PT 12.3 H INR 1.1 APTT 32 Sodium 141 Potassium 3.5 L Chloride 102 Carbon Dioxide 28 Anion Gap 14 BUN 10 Creatinine 0.7 Est GFR ( Amer) > 60 Est GFR (Non-Af Amer) > 60 Random Glucose 130 H Calcium 8.6 Total Bilirubin 1.7 H AST 130 H D ALT 298 H D Alkaline Phosphatase 175 H Total Protein 6.6 Albumin 3.3 L Globulin 3.4 Albumin/Globulin Ratio 1.0 Lipase 324 H Assessment & Plan - Assessment and Plan (Free Text) Assessment: This is a 57yF presenting with abdominal pain. 1. Gallstone Pancreatitis 2. Elevated LFTs 3. Acute cholecystitis 4. Dilated CBD- r/o choledocholithiais Plan: -Continue supportive care with pain control and anti-emetics -IV abx -IVF hydration -BUN/HCt improved -LFTs improving, may have passed a stone -Monitor LFTs, labs -Imaging with dilated CBD collin plan for MRCP -Pt needs cholecystectomy, plans per surgical team -Will order further workup including hepatitis and autoimmune serologies -Will continue to follow <Mustapha Van - Last Filed: 01/08/18 17:11> Meds - Medications Medications: Current Medications Acetaminophen (Tylenol 325mg Tab) 650 mg PO Q6 PRN PRN Reason: Pain, moderate (4-7) Cefepime HCl (Maxipime Iv 1 Gm Premix) 1 gm in 50 mls @ 100 mls/hr IVPB Q12H [facility] PRN Reason: Protocol Last Admin: 01/08/18 09:26 Dose: 100 mls/hr Dextrose/Sodium Chloride (Dextrose 5%/0.45% Ns 1000 Ml) 1,000 mls @ 150 mls/hr IV .Q6H40M [facility] Last Admin: 01/08/18 05:46 Dose: 150 mls/hr Metoprolol Succinate (Toprol Xl) 100 mg PO DAILY [facility] Last Admin: 01/08/18 09:20 Dose: 100 mg Pneumococcal Polyvalent Vaccine (Pneumovax 23 Vaccine) 0.5 ml IM .ONCE ONE Stop: 01/09/18 10:01 Results - Vital Signs Recent Vital Signs: Last Vital Signs Temp 98.3 F 01/08/18 15:59 Pulse 70 01/08/18 15:59 Resp 20 01/08/18 15:59 BP 163/92 H 01/08/18 15:59 Pulse Ox 96 01/08/18 15:59 - Labs Result Diagrams: 01/08/18 07:04 01/08/18 07:04 Labs: Laboratory Results - last 24 hr 01/08/18 01/08/18 01/08/18 07:04 07:04 07:04 WBC 5.8 RBC 4.14 Hgb 13.4 Hct 38.9 MCV 93.9 MCH 32.3 H MCHC 34.4 RDW 14.6 H Plt Count 192 MPV 9.3 Neut % (Auto) 51.7 Lymph % (Auto) 37.1 Blackford % (Auto) 7.0 Eos % (Auto) 3.6 Baso % (Auto) 0.6 Neut # (Auto) 3.0 Lymph # (Auto) 2.1 Blackford # (Auto) 0.4 Eos # (Auto) 0.2 Baso # (Auto) 0.0 PT INR APTT Sodium 141 Potassium 3.5 L Chloride 102 Carbon Dioxide 28 Anion Gap 14 BUN 10 Creatinine 0.7 Est GFR ( Amer) > 60 Est GFR (Non-Af Amer) > 60 Random Glucose 130 H Calcium 8.6 Ferritin 322.0 Total Bilirubin 1.7 H AST 130 H D ALT 298 H D Alkaline Phosphatase 175 H Total Protein 6.6 Albumin 3.3 L Globulin 3.4 Albumin/Globulin Ratio 1.0 Lipase 324 H 01/08/18 10:49 WBC RBC Hgb Hct MCV MCH MCHC RDW Plt Count MPV Neut % (Auto) Lymph % (Auto) Blackford % (Auto) Eos % (Auto) Baso % (Auto) Neut # (Auto) Lymph # (Auto) Blackford # (Auto) Eos # (Auto) Baso # (Auto) PT 12.3 H INR 1.1 APTT 32 Sodium Potassium Chloride Carbon Dioxide Anion Gap BUN Creatinine Est GFR ( Amer) Est GFR (Non-Af Amer) Random Glucose Calcium Ferritin Total Bilirubin AST ALT Alkaline Phosphatase Total Protein Albumin Globulin Albumin/Globulin Ratio Lipase Attending/Attestation - Attestation I have personally seen and examined this patient.: Yes I have fully participated in the care of the patient.: Yes I have reviewed all pertinent clinical information: Yes Notes (Text): 01/08/18 17:08 Patient seen with GI fellow earlier today. This is a 57 year old F presenting with abdominal pain in setting of gallstone pancreatitis. LFT improving- likely passed stone. There is dilated CBD on sonogram upto 1 cm- will get MRCP. If no CBD stone will likely need CCY once acute episode has resolved. Continue IVF 200 cc/hr. Will send hepatitis and autoimmune serologies Will follow. Send daily BMP and CBC
--- NOTE | 2018-01-08 15:30 | CP.PCM.PN ---
Subjective - Date & Time of Evaluation Date of Evaluation: 01/08/18 Time of Evaluation: 15:29 - Subjective Subjective: CHIEF COMPLAINTS TODAY : NO FURTHER ESTRELLA /N/V ROS. HEENT : N. Resp : No cough, wheezing ,pleuritic CP ,or hemoptysis Cardio : No anginal CP, PND, orthopnea, palpitation GI : No diarrhea or GI bleeding . ALARM ADJUSTER : No headache, vertigo, focal deficit. Musculoskel : No joint swelling , Derm : No rash Psych : Normal affect. Ext : No swelling ,calf pain PE. Pt. is alert awake in no distress. V.S As noted in the chart Head ,ear nose,throat and eyes : Normal. Neck : Supple with normal carotids. Lungs: Clear air entry. Heart : S1 & S2 normal with S4. No murmur. Abd : Soft tender with normal bowel sounds. Neuro : Moves all ext. with no localized deficit. Ext : No edema with intact pulses.Non tender calves Derm : No rashes or decubitus ulcer. LABS/RADIOLOGY: ASSESSMENT/PLAN : ? OR ON TUE GI/ID EVAL NOTED Objective - Vital Signs/Intake and Output Vital Signs (last 24 hours): Temp Pulse Resp BP Pulse Ox 98.4 F 75 20 149/77 96 01/08/18 00:00 01/08/18 00:00 01/08/18 00:00 01/08/18 00:00 01/08/18 00:00 Intake and Output: 01/08/18 01/08/18 11:59 23:59 Intake Total Balance - Medications Medications: Current Medications Acetaminophen (Tylenol 325mg Tab) 650 mg PO Q6 PRN PRN Reason: Pain, moderate (4-7) Cefepime HCl (Maxipime Iv 1 Gm Premix) 1 gm in 50 mls @ 100 mls/hr IVPB Q12H [facility] PRN Reason: Protocol Last Admin: 01/08/18 09:26 Dose: 100 mls/hr Dextrose/Sodium Chloride (Dextrose 5%/0.45% Ns 1000 Ml) 1,000 mls @ 150 mls/hr IV .Q6H40M [facility] Last Admin: 01/08/18 05:46 Dose: 150 mls/hr Metoprolol Succinate (Toprol Xl) 100 mg PO DAILY [facility] Last Admin: 01/08/18 09:20 Dose: 100 mg Pneumococcal Polyvalent Vaccine (Pneumovax 23 Vaccine) 0.5 ml IM .ONCE ONE Stop: 01/09/18 10:01 - Labs Labs: 01/08/18 07:04 01/08/18 07:04 PT 12.3 SECONDS (9.7-12.2) H 01/08/18 10:49 INR 1.1 01/08/18 10:49 APTT 32 SECONDS (21-34) 01/08/18 10:49
[2018-01-08] MEDS ORDERED: Potassium Chloride 20 mEq ER Tab PO ONE (16:23)
--- NOTE | 2018-01-08 22:52 | CP.PCM.PN ---
Subjective - Date & Time of Evaluation Date of Evaluation: 01/08/18 Time of Evaluation: 22:52 - Subjective Subjective: CHIEF COMPLAINTS TODAY : AFEBRILE , presently denies abdominal pain, nausea or vomiting seen by GI NPO PER SURGERY. ROS. HEENT : N. Resp : No cough, wheezing ,pleuritic CP ,or hemoptysis Cardio : No anginal CP, PND, orthopnea, palpitation GI : No abd.pain, n/v ,diarrhea or GI bleeding . LUSTERER : No headache, vertigo, focal deficit. Musculoskel : No joint swelling , Derm : No rash Psych : Normal affect. Ext : No swelling ,calf pain PE. Pt. is alert awake in no distress. V.S As noted in the chart Head ,ear nose,throat and eyes : Normal. Neck : Supple with normal carotids. Lungs: Clear air entry. Heart : S1 & S2 normal with S4. No murmur. Abd : Soft non tender with normal bowel sounds. Neuro : Moves all ext. with no localized deficit. Ext : No edema with intact pulses.Non tender calves Derm : No rashes or decubitus ulcer. LABS/RADIOLOGY: REVIEWED BLOOD CULTURES -VE TO DATE LFTS IMPROVING lIPASE IMPROVING. ASSESSMENT IMPRESSION; . ABDOMINAL PAIN. . ACUTE CHOLECYSTITIS. . GALLSTONE ASSOCIATED PANCREATITIS. . HTN. PLAN; NPO. IV FLUIDS ON iv CEFEPIME 1 G iv PIGGYBACK EVERY 12 HOURLY 01/06/18. PT FOR MRCP PER GI . MAY HAV PASSED STONE LFTS IMPROVING. PER SURGERY. PATIENT AWARE OF SURGERY ON TUESDAY. Objective - Vital Signs/Intake and Output Vital Signs (last 24 hours): Temp Pulse Resp BP Pulse Ox 98.3 F 70 20 163/92 H 96 01/08/18 15:59 01/08/18 15:59 01/08/18 15:59 01/08/18 15:59 01/08/18 15:59 Intake and Output: 01/08/18 01/09/18 18:59 06:59 Intake Total 1200 Balance 1200 - Medications Medications: Current Medications Acetaminophen (Tylenol 325mg Tab) 650 mg PO Q6 PRN PRN Reason: Pain, moderate (4-7) Cefepime HCl (Maxipime Iv 1 Gm Premix) 1 gm in 50 mls @ 100 mls/hr IVPB Q12H [facility] PRN Reason: Protocol Last Admin: 01/08/18 21:28 Dose: 100 mls/hr Dextrose/Sodium Chloride (Dextrose 5%/0.45% Ns 1000 Ml) 1,000 mls @ 150 mls/hr IV .Q6H40M [facility] Last Admin: 01/08/18 22:43 Dose: 150 mls/hr Metoprolol Succinate (Toprol Xl) 100 mg PO DAILY [facility] Last Admin: 01/08/18 09:20 Dose: 100 mg Pneumococcal Polyvalent Vaccine (Pneumovax 23 Vaccine) 0.5 ml IM .ONCE ONE Stop: 01/09/18 10:01 - Labs Labs: 01/08/18 07:04 01/08/18 07:04 PT 12.3 SECONDS (9.7-12.2) H 01/08/18 10:49 INR 1.1 01/08/18 10:49 APTT 32 SECONDS (21-34) 01/08/18 10:49
[2018-01-09] MEDS: Dextrose 5%/0.45% NS 1,000 ML IV SCH ×3 (01:00→21:41)
[2018-01-09 06:53] LABS: BASO % 0.4 % (0.0-2.0); EOS # 0.2 K/uL (0.0-0.7); HEMOGLOBIN 13.4 g/dL (11.0-16.0); LYMPH # 2.4 K/uL (1.0-4.3); LYMPH % 45.5 % (20.0-40.0); MEAN CORPUSCULAR HEMOGLOBIN 32.1 pg (27.0-31.0); MEAN CORPUSCULAR HGB CONC 33.8 g/dL (33.0-37.0); MEAN PLATELET VOLUME 9.7 fL (7.2-11.7); MONO # 0.3 K/uL (0.0-0.8); MONO % 6.7 % (0.0-10.0); NEUT # 2.3 K/uL (1.8-7.0); NEUT % 43.4 % (50.0-75.0); NRBC % 0.1 % (0.0-2.0); RBC 4.16 Mil/uL (3.80-5.20); RED CELL DISTRIBUTION WIDTH 14.7 % (11.5-14.5); WHITE BLOOD COUNT 5.2 K/uL (4.8-10.8)
[2018-01-09 07:07] LABS: IRON 78 ug/dL (37-170)
[2018-01-09 07:16] LABS: % IRON SATURATION 36 (20-55); TOTAL IRON BINDING CAPACITY 218 ug/dL (250-450)
[2018-01-09 07:33] LABS: ALBUMIN 3.4 g/dL (3.5-5.0); ALT/SGPT 244 U/L (9-52); AST/SGOT 92 U/L (14-36); BLOOD UREA NITROGEN 7 mg/dL (7-17); CALCIUM 8.7 mg/dl (8.6-10.4); GFR AFRICAN-AMERICAN > 60; GFR NON-AFRICAN AMERICAN > 60; LIPASE 327 U/L (23-300)
[2018-01-09 08:21] LABS: HEPATITIS B SURFACE AG Negative (NEGATIVE)
[2018-01-09 08:28] LABS: HEPATITIS A IGM NEGATIVE (NEGATIVE); HEPATITIS B CORE AB NEGATIVE (NEGATIVE)
[2018-01-09 08:38] LABS: HEPATITIS C ANTIBODY NEGATIVE (NEGATIVE)
[2018-01-09] MEDS ORDERED: Gadodiamide 287 mg/ml 20 ml IV ONE (08:54)
--- NOTE | 2018-01-09 09:14 | CP.PCM.PN ---
Subjective - Date & Time of Evaluation Date of Evaluation: 01/09/18 Time of Evaluation: 07:00 Objective - Vital Signs/Intake and Output Vital Signs (last 24 hours): Temp Pulse Resp BP Pulse Ox 98.2 F 65 20 125/82 98 01/09/18 07:33 01/09/18 07:33 01/09/18 07:33 01/09/18 07:33 01/09/18 07:33 Intake and Output: 01/09/18 01/09/18 06:59 18:59 Intake Total 1250 1200 Balance 1250 1200 - Medications Medications: Current Medications Acetaminophen (Tylenol 325mg Tab) 650 mg PO Q6 PRN PRN Reason: Pain, moderate (4-7) Cefepime HCl (Maxipime Iv 1 Gm Premix) 1 gm in 50 mls @ 100 mls/hr IVPB Q12H [facility] PRN Reason: Protocol Last Admin: 01/08/18 21:28 Dose: 100 mls/hr Dextrose/Sodium Chloride (Dextrose 5%/0.45% Ns 1000 Ml) 1,000 mls @ 150 mls/hr IV .Q6H40M [facility] Last Admin: 01/09/18 05:18 Dose: 150 mls/hr Metoprolol Succinate (Toprol Xl) 100 mg PO DAILY [facility] Last Admin: 01/08/18 09:20 Dose: 100 mg Pneumococcal Polyvalent Vaccine (Pneumovax 23 Vaccine) 0.5 ml IM .ONCE ONE Stop: 01/09/18 10:01 - Labs Labs: 01/09/18 06:35 01/09/18 06:35 PT 12.3 SECONDS (9.7-12.2) H 01/08/18 10:49 INR 1.1 01/08/18 10:49 APTT 32 SECONDS (21-34) 01/08/18 10:49 - Constitutional Appears: Well, No Acute Distress - Head Exam Head Exam: ATRAUMATIC, NORMOCEPHALIC - Eye Exam Eye Exam: Normal appearance - ENT Exam ENT Exam: Mucous Membranes Moist, Normal Exam - Neck Exam Neck Exam: Normal Inspection - Respiratory Exam Respiratory Exam: Clear to Ausculation Bilateral, NORMAL BREATHING PATTERN. absent: Rales, Rhonchi, Wheezes, Respiratory Distress - Cardiovascular Exam Cardiovascular Exam: REGULAR RHYTHM, +S1 - GI/Abdominal Exam GI & Abdominal Exam: Soft, Tenderness (epigastric, LLQ), Normal Bowel Sounds - Extremities Exam Extremities Exam: Normal Capillary Refill - Neurological Exam Neurological Exam: Awake, Oriented x3 - Psychiatric Exam Psychiatric exam: Normal Affect, Normal Mood - Skin Skin Exam: Dry, Intact, Normal Color, Warm
--- NOTE | 2018-01-09 09:38 | MRI ---
PROCEDURE: MRI Abdomen with and without contrast HISTORY: COMPARISON: None available. TECHNIQUE: Multisequence, multiplanar MR images of the abdomen with and without gadolinium contrast enhancement. FINDINGS: LIVER: FATTY LIVER. GALLBLADDER: CHOLELITHIASIS. SPLEEN: Unremarkable. PANCREAS: Unremarkable. ADRENALS: Unremarkable. KIDNEYS: Unremarkable. AORTA: No aneurysm. ASCITES: None. PERITONEUM: Unremarkable. LYMPH NODES: Unremarkable. OTHER FINDINGS: None. IMPRESSION: FATTY LIVER. CHOLELITHIASIS.
[2018-01-09] MEDS: Cefepime IV 1 gm in Dextrose 1 GM/50 ML BAG IVPB SCH ×2 (09:47→21:43)
[2018-01-09] MEDS: Metoprolol Succinate 100 mg XL Tab PO SCH (09:50)
[2018-01-09] MEDS ORDERED: Pneumococcal 23-Valent Vaccine IM ONE (10:00)
[2018-01-09] MEDS ORDERED: Influenza Vaccine 60 mcg/0.5 mL SYR (4YR UP) IM ONE (10:00)
--- NOTE | 2018-01-09 12:45 | CP.PCM.PN ---
Subjective - Date & Time of Evaluation Date of Evaluation: 01/09/18 Time of Evaluation: 12:44 - Subjective Subjective: FOR MRCP AND OR TODAY IMPROVING AFEBRILE Objective - Vital Signs/Intake and Output Vital Signs (last 24 hours): Temp Pulse Resp BP Pulse Ox 98.2 F 65 20 125/82 98 01/09/18 07:33 01/09/18 07:33 01/09/18 07:33 01/09/18 07:33 01/09/18 07:33 Intake and Output: 01/09/18 01/09/18 11:59 23:59 Intake Total 1200 Balance 1200 - Medications Medications: Current Medications Acetaminophen (Tylenol 325mg Tab) 650 mg PO Q6 PRN PRN Reason: Pain, moderate (4-7) Cefepime HCl (Maxipime Iv 1 Gm Premix) 1 gm in 50 mls @ 100 mls/hr IVPB Q12H [facility] PRN Reason: Protocol Last Admin: 01/09/18 09:47 Dose: 100 mls/hr Dextrose/Sodium Chloride (Dextrose 5%/0.45% Ns 1000 Ml) 1,000 mls @ 150 mls/hr IV .Q6H40M [facility] Last Admin: 01/09/18 05:18 Dose: 150 mls/hr Metoprolol Succinate (Toprol Xl) 100 mg PO DAILY [facility] Last Admin: 01/09/18 09:50 Dose: 100 mg - Labs Labs: 01/09/18 06:35 01/09/18 06:35 PT 12.3 SECONDS (9.7-12.2) H 01/08/18 10:49 INR 1.1 01/08/18 10:49 APTT 32 SECONDS (21-34) 01/08/18 10:49
[2018-01-09] MEDS ORDERED: Propofol 10 mg/ml Inj (20 ML) ONE (13:10)
[2018-01-09] MEDS ORDERED: Midazolam 2 MG/2 ML VIAL ONE (13:10)
[2018-01-09] MEDS ORDERED: Lactated Ringer's 1,000 ML IV ONE (13:22)
[2018-01-09] MEDS ORDERED: Bupivacaine HCl 0.25% PF (10 ml) Inj ONE (13:30)
[2018-01-09] MEDS ORDERED: Lidocaine/Epinephrine 1% 1:100000 10 ML IJ ONE (13:30)
--- NOTE | 2018-01-09 13:30 | CP.PCM.PCO ---
Physician Communication Note - Physician Communication Note Physician Communication Note: MRCP-cholelithiasis. No GI intervention. We will be signing off. Thank you.
[2018-01-09] MEDS ORDERED: Neostigmine Methylsulfate 3mg/3ml Syringe IV ONE (14:39)
--- NOTE | 2018-01-09 15:29 | PCM.SURG1 ---
Surgeon's Initial Post Op Note - Surgeon's Notes Surgeon: Dr. Leonardo Pool Technician: Dr. Adams, PGY-3, Mariangel MS3 Type of Anesthesia: General Endo Anesthesia Administered By: Dr. Mims Pre-Operative Diagnosis: Gallstone Pancreatitis Operative Findings: See operative report Post-Operative Diagnosis: Same Operation Performed: Laparoscopic Cholecystectomy with lysis of adhesions Specimen/Specimens Removed: Gallbladder Estimated Blood Loss: EBL {In ML}: 5 Blood Products Given: N/A Drains Used: No Drains Post-Op Condition: Good Date of Surgery/Procedure: 01/09/18 Time of Surgery/Procedure: 15:29
[2018-01-09] MEDS ORDERED: HYDROmorphone 0.5 mg/0.5 ml ISec IVP PRN (15:30)
[2018-01-09] MEDS ORDERED: Oxycodone/Acetaminophen 5/325 mg Tab PO PRN (15:31)
[2018-01-09] MEDS: HYDROmorphone 0.5 mg/0.5 ml ISec IVP PRN ×2 (15:57→16:15)
--- NOTE | 2018-01-09 16:37 | CARD ---
APPROVED REPORT EKG Measurement Heart [id number] <Conclusion> Normal sinus rhythm Possible Left atrial enlargement Left ventricular hypertrophy Abnormal ECG
[2018-01-09 18:15] VITALS: RESP 20
--- NOTE | 2018-01-09 20:37 | CP.PCM.PN ---
Subjective - Date & Time of Evaluation Date of Evaluation: 01/09/18 Time of Evaluation: 20:37 - Subjective Subjective: CHIEF COMPLAINTS TODAY : Operation Performed: Laparoscopic Cholecystectomy with lysis of adhesion PT SEEN POST OP. VSS ROS. HEENT : N. Resp : No cough, wheezing ,pleuritic CP ,or hemoptysis Cardio : No anginal CP, PND, orthopnea, palpitation GI : No abd.pain, n/v ,diarrhea or GI bleeding . INSTRUMENTATION SUPERVISOR : No headache, vertigo, focal deficit. Musculoskel : No joint swelling , Derm : No rash Psych : Normal affect. Ext : No swelling ,calf pain PE. Pt. is in no distress. V.S As noted in the chart Head ,ear nose,throat and eyes : Normal. Neck : Supple with normal carotids. Lungs: Clear air entry. Heart : S1 & S2 normal with S4. No murmur. Abd : Soft , POST OPT S/P LAPARASCOPIC CHOLYCYSTECTOMY Neuro : Moves all ext. with no localized deficit. Ext : No edema with intact pulses.Non tender calves Derm : No rashes or decubitus ulcer. LABS/RADIOLOGY: REVIEWED BLOOD CULTURES -VE TO DATE LFTS IMPROVING lIPASE IMPROVING. ASSESSMENT IMPRESSION; . S/P LAPRASCOPIC CHOLYCYSTECTOMY/LYSIS OF ADHESIONS.01/09/18 . GALLSTONE ASSOCIATED PANCREATITIS. . HTN. PLAN; IV FLUIDS ON iv CEFEPIME 1 G iv PIGGYBACK EVERY 12 HOURLY 01/06/18. POST OPTIVE CARE PER SURGERY. Objective - Vital Signs/Intake and Output Vital Signs (last 24 hours): Temp Pulse Resp BP Pulse Ox 97.6 F 71 20 163/74 H 95 01/09/18 17:25 01/09/18 17:25 01/09/18 17:25 01/09/18 17:25 01/09/18 17:25 Intake and Output: 01/09/18 01/10/18 18:59 06:59 Intake Total 2950 Balance 2950 - Medications Medications: Current Medications Acetaminophen (Tylenol 325mg Tab) 650 mg PO Q6 PRN PRN Reason: Pain, moderate (4-7) Hydromorphone HCl (Dilaudid) 0.5 mg IVP Q6H PRN PRN Reason: Pain, severe (8-10) Stop: 01/10/18 06:00 Cefepime HCl (Maxipime Iv 1 Gm Premix) 1 gm in 50 mls @ 100 mls/hr IVPB Q12H [facility] PRN Reason: Protocol Last Admin: 01/09/18 09:47 Dose: 100 mls/hr Dextrose/Sodium Chloride (Dextrose 5%/0.45% Ns 1000 Ml) 1,000 mls @ 150 mls/hr IV .Q6H40M [facility] Last Admin: 01/09/18 05:18 Dose: 150 mls/hr Metoprolol Succinate (Toprol Xl) 100 mg PO DAILY [facility] Last Admin: 01/09/18 09:50 Dose: 100 mg Oxycodone/Acetaminophen (Percocet 5/325 Mg Tab) 1 tab PO Q4H PRN PRN Reason: Pain, moderate (4-7) Stop: 01/12/18 15:32 - Labs Labs: 01/09/18 06:35 01/09/18 06:35 PT 12.3 SECONDS (9.7-12.2) H 01/08/18 10:49 INR 1.1 01/08/18 10:49 APTT 32 SECONDS (21-34) 01/08/18 10:49
[2018-01-10] MEDS ORDERED: Benzocaine/Menthol (Cepacol) Lozenge MT PRN (01:15)
[2018-01-10] MEDS: Dextrose 5%/0.45% NS 1,000 ML IV SCH ×3 (03:50→14:16)
--- NOTE | 2018-01-10 04:41 | OP ---
PROCEDURE DATE: 01/09/2018 PREOPERATIVE DIAGNOSES: 1. Gallstone pancreatitis. 2. Chronic cholecystitis and cholelithiasis. 3. Abdominal pain. POSTOPERATIVE DIAGNOSES: 1. Gallstone pancreatitis. 2. Chronic cholecystitis and cholelithiasis. 3. Abdominal pain. PROCEDURE DONE: 1. Laparoscopic cholecystectomy. 2. Laparoscopic extensive lysis of adhesion. SURGEON: Garry Leonardo MD GOLD MINER: Ruby Adams, PGY-3 resident. TYPE OF ANESTHESIA: General endotracheal tube anesthesia. ESTIMATED BLOOD LOSS: Around 20 mL. DRAINS: None. PATHOLOGY: Gallbladder with a gallstone was sent for the pathology. COMPLICATIONS: None. INTRAOPERATIVE FINDINGS: The patient had changes of chronic cholecystosis, cholelithiasis, and the patient had extensive post infectious adhesion of omentum to the gallbladder, duodenum to the gallbladder and Calot's triangle and extensive lysis of adhesion. DESCRIPTION OF PROCEDURE: On intraoperative steps, this is a 57-year-old female who was diagnosed with a gallstone pancreatitis, and the patient was consented for laparoscopic cholecystectomy possible open after normalization of the liver function test, and patient also had MRCP that was negative for CBD stone. After that, the patient was brought to the OR, placed supine on the operating table. After induction of the anesthesia, abdomen was prepped and draped in a usual sterile fashion. Supraumbilical transverse incision after incising skin, subcutaneous tissue, and the fascia. The Shannon port was placed, pneumo was created, a 12-mm port was placed in the midline below the sternum and two 5-mm port was placed in the midclavicular and anterior axillary line. After that, the upper endoscopy was introduced, and the patient was found to have extensive omental adhesion. First lysis of adhesion was done, then the duodenum was also firmly attached and the enterolysis was done. After extensive lysis of adhesion, the infundibulum of the gallbladder was identified, and the infundibulum was retracted laterally, gallbladder was retracted cranially, and the Calot's triangle dissection was done. Cystic duct and cystic artery was identified. Critical view of the safety was identified. The top down approach was done from the mid part of the gallbladder, and the cystic duct appeared to be extremely large in size, and the common bile duct junction was identified, and after that, cystic duct was clipped. The cystic duct was stapled with ANGELES, and cystic artery was clipped at 3 places and cut in between 2 clips nearby gallbladder, and gallbladder was dissected free from the gallbladder fossa, taken in an EndoCatch bag, taken out through the umbilical port site and sent off the table for the pathology. There was proper hemostasis in each and every part of the procedure, and suction irrigation of the gallbladder fossa and the perihepatic area was done. All the port was taken out under vision, pneumo was deflated. The gallbladder was sent off the table for the pathology. Count of the instrument and gauze was correct. There was no apparent complication. The umbilical port site was closed in two layers, the fascia with 0 Vicryl interrupted suture, skin with a 4-0 Monocryl, and dry sterile dressing was applied. The patient tolerated the procedure well. Count of the instrument and gauze was correct. There was no apparent complication. Garry Leonardo MD [id number]
[2018-01-10 08:04] LABS: HEMOGLOBIN 13.2 g/dL (11.0-16.0); MEAN CELL VOLUME 94.6 fL (81.0-99.0); MEAN CORPUSCULAR HEMOGLOBIN 31.8 pg (27.0-31.0); MEAN CORPUSCULAR HGB CONC 33.7 g/dL (33.0-37.0); MEAN PLATELET VOLUME 9.7 fL (7.2-11.7); RBC 4.15 Mil/uL (3.80-5.20); RED CELL DISTRIBUTION WIDTH 14.3 % (11.5-14.5); WHITE BLOOD COUNT 7.5 K/uL (4.8-10.8)
[2018-01-10 08:17] LABS: ALB/GLOB RATIO 1.1 (1.0-2.1); ALBUMIN 3.6 g/dL (3.5-5.0); ALT/SGPT 223 U/L (9-52); AST/SGOT 116 U/L (14-36); BLOOD UREA NITROGEN 7 mg/dL (7-17); CALCIUM 8.4 mg/dl (8.6-10.4); GFR AFRICAN-AMERICAN > 60; GFR NON-AFRICAN AMERICAN > 60
[2018-01-10 09:10] LABS: CERULOPLASMIN 31 mg/dL (18-53)
--- NOTE | 2018-01-10 09:58 | CP.PCM.PN ---
Subjective - Date & Time of Evaluation Date of Evaluation: 01/10/18 Time of Evaluation: 07:00 - Subjective Subjective: PGY4 GI Follow-up Pt seen and examined bedside No complaints Slight tenderness at RUQ tolerating diet +flatus ROS: 10 point ROS is neg Objective - Vital Signs/Intake and Output Vital Signs (last 24 hours): Temp Pulse Resp BP Pulse Ox 98.6 F 86 20 135/75 96 01/10/18 08:00 01/10/18 08:00 01/10/18 08:00 01/10/18 08:00 01/10/18 08:00 Intake and Output: 01/10/18 01/10/18 06:59 18:59 Intake Total 1975 Balance 1974 - Medications Medications: Current Medications Acetaminophen (Tylenol 325mg Tab) 650 mg PO Q6 PRN PRN Reason: Pain, moderate (4-7) Benzocaine/Menthol (Cepacol Sore Throat) 1 rishi MT Q8H PRN PRN Reason: Sore Throat Last Admin: 01/10/18 01:30 Dose: 1 rsihi Cefepime HCl (Maxipime Iv 1 Gm Premix) 1 gm in 50 mls @ 100 mls/hr IVPB Q12H SHERI PRN Reason: Protocol Last Admin: 01/09/18 21:43 Dose: 100 mls/hr Dextrose/Sodium Chloride (Dextrose 5%/0.45% Ns 1000 Ml) 1,000 mls @ 150 mls/hr IV .Q6H40M [facility] Last Admin: 01/10/18 03:50 Dose: 150 mls/hr Metoprolol Succinate (Toprol Xl) 100 mg PO DAILY [facility] Last Admin: 01/09/18 09:50 Dose: 100 mg Oxycodone/Acetaminophen (Percocet 5/325 Mg Tab) 1 tab PO Q4H PRN PRN Reason: Pain, moderate (4-7) Stop: 01/12/18 15:32 - Labs Labs: 01/10/18 07:42 01/10/18 07:42 PT 12.3 SECONDS (9.7-12.2) H 01/08/18 10:49 INR 1.1 01/08/18 10:49 APTT 32 SECONDS (21-34) 01/08/18 10:49
--- NOTE | 2018-01-10 09:59 | CP.PCM.PN ---
<Arik Delgadillo - Last Filed: 01/10/18 10:01> Subjective - Date & Time of Evaluation Date of Evaluation: 01/10/18 Time of Evaluation: 07:00 - Subjective Subjective: PGY4 GI Follow-up Pt seen and examined bedside No complaints Slight tenderness at RUQ tolerating diet +flatus ROS: 10 point ROS is neg Objective - Vital Signs/Intake and Output Vital Signs (last 24 hours): Temp Pulse Resp BP Pulse Ox 98.6 F 86 20 135/75 96 01/10/18 08:00 01/10/18 08:00 01/10/18 08:00 01/10/18 08:00 01/10/18 08:00 Intake and Output: 01/10/18 01/10/18 06:59 18:59 Intake Total 1975 Balance 1974 - Medications Medications: Current Medications Acetaminophen (Tylenol 325mg Tab) 650 mg PO Q6 PRN PRN Reason: Pain, moderate (4-7) Benzocaine/Menthol (Cepacol Sore Throat) 1 rishi MT Q8H PRN PRN Reason: Sore Throat Last Admin: 01/10/18 01:30 Dose: 1 rishi Cefepime HCl (Maxipime Iv 1 Gm Premix) 1 gm in 50 mls @ 100 mls/hr IVPB Q12H SHERI PRN Reason: Protocol Last Admin: 01/09/18 21:43 Dose: 100 mls/hr Dextrose/Sodium Chloride (Dextrose 5%/0.45% Ns 1000 Ml) 1,000 mls @ 150 mls/hr IV .Q6H40M [facility] Last Admin: 01/10/18 03:50 Dose: 150 mls/hr Metoprolol Succinate (Toprol Xl) 100 mg PO DAILY [facility] Last Admin: 01/09/18 09:50 Dose: 100 mg Oxycodone/Acetaminophen (Percocet 5/325 Mg Tab) 1 tab PO Q4H PRN PRN Reason: Pain, moderate (4-7) Stop: 01/12/18 15:32 - Labs Labs: 01/10/18 07:42 01/10/18 07:42 PT 12.3 SECONDS (9.7-12.2) H 01/08/18 10:49 INR 1.1 01/08/18 10:49 APTT 32 SECONDS (21-34) 01/08/18 10:49 - Constitutional Appears: Well, No Acute Distress - Head Exam Head Exam: ATRAUMATIC, NORMOCEPHALIC - Eye Exam Eye Exam: Normal appearance - ENT Exam ENT Exam: Mucous Membranes Moist, Normal Exam - Neck Exam Neck Exam: Normal Inspection - Respiratory Exam Respiratory Exam: Clear to Ausculation Bilateral, NORMAL BREATHING PATTERN. absent: Rales, Rhonchi, Wheezes, Respiratory Distress - Cardiovascular Exam Cardiovascular Exam: REGULAR RHYTHM, +S1, +S2 - GI/Abdominal Exam GI & Abdominal Exam: Soft, Normal Bowel Sounds. absent: Guarding, Rigid, Tenderness - Extremities Exam Extremities Exam: absent: Joint Swelling, Pedal Edema - Neurological Exam Neurological Exam: Alert, Awake, Oriented x3 - Psychiatric Exam Psychiatric exam: Normal Affect, Normal Mood - Skin Skin Exam: Dry, Intact, Normal Color, Warm Assessment and Plan - Assessment and Plan (Free Text) Assessment: This is a 57yF presenting with abdominal pain. 1. Gallstone Pancreatitis 2. Elevated LFTs (TRENDING DOWN) 3. Acute cholecystitis s/p lap lakisha POD #1 4. Dilated CBD Plan: -Continue supportive care with pain control and anti-emetics -BUN/HCt improved -LFTs improving -MRCP neg for CBD stone or filling defects -recommend colonoscopy as an outpt -will sign off D/W Dr. Roberts <Fahad Roberts - Last Filed: 01/10/18 11:25> Objective - Vital Signs/Intake and Output Vital Signs (last 24 hours): Temp Pulse Resp BP Pulse Ox 98.6 F 86 20 135/75 96 01/10/18 08:00 01/10/18 08:00 01/10/18 08:00 01/10/18 08:00 01/10/18 08:00 Intake and Output: 01/10/18 01/10/18 06:59 18:59 Intake Total 1975 Balance 1974 - Medications Medications: Current Medications Acetaminophen (Tylenol 325mg Tab) 650 mg PO Q6 PRN PRN Reason: Pain, moderate (4-7) Benzocaine/Menthol (Cepacol Sore Throat) 1 rishi MT Q8H PRN PRN Reason: Sore Throat Last Admin: 01/10/18 01:30 Dose: 1 rishi Cefepime HCl (Maxipime Iv 1 Gm Premix) 1 gm in 50 mls @ 100 mls/hr IVPB Q12H SHERI PRN Reason: Protocol Last Admin: 01/10/18 10:35 Dose: 100 mls/hr Dextrose/Sodium Chloride (Dextrose 5%/0.45% Ns 1000 Ml) 1,000 mls @ 150 mls/hr IV .Q6H40M [facility] Last Admin: 01/10/18 10:33 Dose: Not Given Metoprolol Succinate (Toprol Xl) 100 mg PO DAILY [facility] Last Admin: 01/10/18 10:34 Dose: Not Given Oxycodone/Acetaminophen (Percocet 5/325 Mg Tab) 1 tab PO Q4H PRN PRN Reason: Pain, moderate (4-7) Stop: 01/12/18 15:32 - Labs Labs: 01/10/18 07:42 01/10/18 07:42 PT 12.3 SECONDS (9.7-12.2) H 01/08/18 10:49 INR 1.1 01/08/18 10:49 APTT 32 SECONDS (21-34) 01/08/18 10:49 Attending/Attestation - Attestation I have personally seen and examined this patient.: Yes I have fully participated in the care of the patient.: Yes I have reviewed all pertinent clinical information, including history, physical exam and plan: Yes Notes (Text): 01/10/18 11:23 I have seen and examined patient with GI fellow. No acute events overnight, she complains of mild abdominal discomfort at surgical site but otherwise denies nausea, vomiting, fever/chills. Tolerating PO diet without difficulty. Review of vitals from today are normal. Abdominal pain Gallstone pancreatitis, acute cholecystitis s/p lap cholecystectomy, POD #1 - Diet as tolerated - Continue with antibiotic therapy - LFTs stable, continue to monitor. Awaiting autoimmune panel testing. - No further planned GI interventions, will sign off case. Please reconsult as necessary, thank you.
[2018-01-10] MEDS: Metoprolol Succinate 100 mg XL Tab PO SCH (10:34)
[2018-01-10] MEDS: Cefepime IV 1 gm in Dextrose 1 GM/50 ML BAG IVPB SCH (10:35)
--- NOTE | 2018-01-10 12:27 | CP.PCM.PN ---
<VonnieAbiel - Last Filed: 01/10/18 12:28> Subjective - Date & Time of Evaluation Date of Evaluation: 01/10/18 Time of Evaluation: 06:45 - Subjective Subjective: Surgery Progress note. Dr. Leonardo Pt seen and examined at bedside. No acute events overnight. No N/V/D. No F/C. Pain controlled. Tolerating diet. No new complaints. Objective - Vital Signs/Intake and Output Vital Signs (last 24 hours): Temp Pulse Resp BP Pulse Ox 98.6 F 86 20 135/75 96 01/10/18 08:00 01/10/18 08:00 01/10/18 08:00 01/10/18 08:00 01/10/18 08:00 Intake and Output: 01/10/18 01/10/18 06:59 18:59 Intake Total 1975 Balance 1975 - Medications Medications: Current Medications Acetaminophen (Tylenol 325mg Tab) 650 mg PO Q6 PRN PRN Reason: Pain, moderate (4-7) Benzocaine/Menthol (Cepacol Sore Throat) 1 rishi MT Q8H PRN PRN Reason: Sore Throat Last Admin: 01/10/18 01:30 Dose: 1 rishi Cefepime HCl (Maxipime Iv 1 Gm Premix) 1 gm in 50 mls @ 100 mls/hr IVPB Q12H SHERI PRN Reason: Protocol Last Admin: 01/10/18 10:35 Dose: 100 mls/hr Dextrose/Sodium Chloride (Dextrose 5%/0.45% Ns 1000 Ml) 1,000 mls @ 150 mls/hr IV .Q6H40M [facility] Last Admin: 01/10/18 10:33 Dose: Not Given Metoprolol Succinate (Toprol Xl) 100 mg PO DAILY [facility] Last Admin: 01/10/18 10:34 Dose: Not Given Oxycodone/Acetaminophen (Percocet 5/325 Mg Tab) 1 tab PO Q4H PRN PRN Reason: Pain, moderate (4-7) Stop: 01/12/18 15:32 - Labs Labs: 01/10/18 07:42 01/10/18 07:42 PT 12.3 SECONDS (9.7-12.2) H 01/08/18 10:49 INR 1.1 01/08/18 10:49 APTT 32 SECONDS (21-34) 01/08/18 10:49 - Constitutional Appears: Well, Non-toxic, No Acute Distress - Head Exam Head Exam: ATRAUMATIC, NORMAL INSPECTION, NORMOCEPHALIC - Eye Exam Eye Exam: EOMI, Normal appearance - ENT Exam ENT Exam: Mucous Membranes Moist - Respiratory Exam Respiratory Exam: Clear to Ausculation Bilateral, NORMAL BREATHING PATTERN. absent: Accessory Muscle Use, Respiratory Distress - Cardiovascular Exam Cardiovascular Exam: absent: JVD - GI/Abdominal Exam GI & Abdominal Exam: Soft. absent: Distended, Firm, Guarding, Rigid, Tenderness , Rebound Additional comments: Dressings clean dry and intact. Non tender, non distended - Extremities Exam Extremities Exam: Normal Inspection. absent: Calf Tenderness - Neurological Exam Neurological Exam: Alert, Awake, Oriented x3 - Psychiatric Exam Psychiatric exam: Normal Affect, Normal Mood - Skin Skin Exam: Dry, Intact, Normal Color, Warm Assessment and Plan - Assessment and Plan (Free Text) Assessment: 57yo F s/p lap lakisha. POD1 - LFTs improved Plan: - Cleared for discharge from surgical standpoint - f/u with Dr. Leonardo in office in 10 days. Call for appointment - You may shower, No soaking. Allow steristrips to come off on their own. Further recs as per Dr. Malissa Shankar PGY1 surgery pager: [phone] <Garry Leonardo - Last Filed: 01/11/18 19:57> Objective - Vital Signs/Intake and Output Vital Signs (last 24 hours): Temp Pulse Resp BP Pulse Ox 98.1 F 81 20 156/82 H 97 01/10/18 15:15 01/10/18 15:15 01/10/18 15:15 01/10/18 15:15 01/10/18 15:15 - Labs Labs: 01/10/18 07:42 01/10/18 07:42 PT 12.3 SECONDS (9.7-12.2) H 01/08/18 10:49 INR 1.1 01/08/18 10:49 APTT 32 SECONDS (21-34) 01/08/18 10:49 Attending/Attestation - Attestation I have personally seen and examined this patient.: Yes I have fully participated in the care of the patient.: Yes I have reviewed all pertinent clinical information, including history, physical exam and plan: Yes Notes (Text): Pt was seen and examined at bedside Agree with above note and assessment Pt is improved clinically LFTs improving Pt can be DC home Local wound care f.u as outpt Plan d.w pt in detail Risk and benefit explained in detail.
--- NOTE | 2018-01-10 13:44 | CP.PCM.DIS ---
Provider - Provider Date of Admission: 01/06/18 18:41 Attending physician: Mirlande Lunsford MD Time Spent in preparation of Discharge (in minutes): 35 Hospital Course - Lab Results Lab Results: Micro Results 01/06/18 20:50 Blood-Venous Blood Culture - Preliminary NO GROWTH AFTER 3 DAYS 01/06/18 20:17 Blood-Venous Blood Culture - Preliminary NO GROWTH AFTER 3 DAYS Most Recent Lab Values WBC 7.5 K/uL (4.8-10.8) 01/10/18 07:42 RBC 4.15 Mil/uL (3.80-5.20) 01/10/18 07:42 Hgb 13.2 g/dL (11.0-16.0) 01/10/18 07:42 Hct 39.3 % (34.0-47.0) 01/10/18 07:42 MCV 94.6 fL (81.0-99.0) 01/10/18 07:42 MCH 31.8 pg (27.0-31.0) H 01/10/18 07:42 MCHC 33.7 g/dL (33.0-37.0) 01/10/18 07:42 RDW 14.3 % (11.5-14.5) 01/10/18 07:42 Plt Count 243 K/uL (130-400) 01/10/18 07:42 MPV 9.7 fL (7.2-11.7) 01/10/18 07:42 Neut % (Auto) 43.4 % (50.0-75.0) L 01/09/18 06:35 Lymph % (Auto) 45.5 % (20.0-40.0) H 01/09/18 06:35 Schuyler % (Auto) 6.7 % (0.0-10.0) 01/09/18 06:35 Eos % (Auto) 4.0 % (0.0-4.0) 01/09/18 06:35 Baso % (Auto) 0.4 % (0.0-2.0) 01/09/18 06:35 Neut # (Auto) 2.3 K/uL (1.8-7.0) 01/09/18 06:35 Lymph # (Auto) 2.4 K/uL (1.0-4.3) 01/09/18 06:35 Schuyler # (Auto) 0.3 K/uL (0.0-0.8) 01/09/18 06:35 Eos # (Auto) 0.2 K/uL (0.0-0.7) 01/09/18 06:35 Baso # (Auto) 0.0 K/uL (0.0-0.2) 01/09/18 06:35 PT 12.3 SECONDS (9.7-12.2) H 01/08/18 10:49 INR 1.1 01/08/18 10:49 APTT 32 SECONDS (21-34) 01/08/18 10:49 Sodium 139 mmol/L (132-148) 01/10/18 07:42 Potassium 3.6 mmol/L (3.6-5.2) 01/10/18 07:42 Chloride 97 mmol/L (98-107) L 01/10/18 07:42 Carbon Dioxide 28 mmol/L (22-30) 01/10/18 07:42 Anion Gap 17 (10-20) 01/10/18 07:42 BUN 7 mg/dL (7-17) 01/10/18 07:42 Creatinine 0.7 mg/dL (0.7-1.2) 01/10/18 07:42 Est GFR ( Amer) > 60 01/10/18 07:42 Est GFR (Non-Af Amer) > 60 01/10/18 07:42 Random Glucose 122 mg/dL (65-105) H 01/10/18 07:42 Lactic Acid 1.7 mmol/L (0.7-2.1) 01/06/18 17:01 Calcium 8.4 mg/dl (8.6-10.4) L 01/10/18 07:42 Iron 78 ug/dL (37-170) 01/09/18 06:35 TIBC 218 ug/dL (250-450) L 01/09/18 06:35 % Saturation 36 (20-55) 01/09/18 06:35 Ferritin 322.0 ng/mL 01/08/18 07:04 Total Bilirubin 1.3 mg/dL (0.2-1.3) 01/10/18 07:42 AST 116 U/L (14-36) H D 01/10/18 07:42 ALT 223 U/L (9-52) H 01/10/18 07:42 Alkaline Phosphatase 136 U/L (38-126) H 01/10/18 07:42 Troponin I < 0.0120 ng/mL (0.00-0.120) 01/06/18 17:01 Total Protein 6.8 g/dL (6.3-8.3) 01/10/18 07:42 Albumin 3.6 g/dL (3.5-5.0) 01/10/18 07:42 Globulin 3.2 gm/dL (2.2-3.9) 01/10/18 07:42 Albumin/Globulin Ratio 1.1 (1.0-2.1) 01/10/18 07:42 Ceruloplasmin 31 mg/dL (18-53) 01/09/18 06:35 Lipase 327 U/L (23-300) H 01/09/18 06:35 Urine Color Yellow (YELLOW) 01/06/18 18:34 Urine Clarity Clear (Clear) 01/06/18 18:34 Urine pH 6.0 (5.0-8.0) 01/06/18 18:34 Ur Specific [place] 1.006 (1.003-1.030) 01/06/18 18:34 Urine Protein Negative mg/dL (NEGATIVE) 01/06/18 18:34 Urine Glucose (UA) Normal mg/dL (Normal) 01/06/18 18:34 Urine Ketones Negative mg/dL (NEGATIVE) 01/06/18 18:34 Urine Blood Negative (NEGATIVE) 01/06/18 18:34 Urine Nitrate Negative (NEGATIVE) 01/06/18 18:34 Urine Bilirubin Negative (NEGATIVE) 01/06/18 18:34 Urine Urobilinogen Normal mg/dL (0.2-1.0) 01/06/18 18:34 Ur Leukocyte Esterase Neg Gurdeep/uL (Negative) 01/06/18 18:34 Urine WBC (Auto) 3 /hpf (0-5) 01/06/18 18:34 Urine RBC (Auto) < 1 /hpf (0-3) 01/06/18 18:34 Ur Squamous Epith Cells 1 /hpf (0-5) 01/06/18 18:34 Urine Bacteria Rare (<OCC) 01/06/18 18:34 Hepatitis A IgM Ab Negative (NEGATIVE) 01/08/18 07:04 Hep Bs Antigen Negative (NEGATIVE) 01/08/18 07:04 Hep B Core IgM Ab Negative (NEGATIVE) 01/08/18 07:04 Hepatitis C Antibody Negative (NEGATIVE) 01/08/18 07:04 - Hospital Course Hospital Course: FOR FEW DAYS PT. IS C/O EPIGASTRIC PAIN RADIATING TO LEFT UPPER QUADRANT . PAIN IS CONSTANT WITH GRADE 7 (1-10) A/W NAUSEA AND VOMITING PAIN RELIEVED WITH PO ANALGESICS CT OF ABD SHOWED GALL STONES/SLUDGE AND PERICOLIC FLUID PT.HAD UNEVENTFUL LAP. CHELECYSTECTOMY , MRCP , GALL STONE PATHOLOGY PENDING PT CLEARED FOR DISCHARGE BY SURGERY PT STABLE FOR DC Discharge Exam - Head Exam Head Exam: ATRAUMATIC, NORMAL INSPECTION, NORMOCEPHALIC Discharge Plan - Follow Up Plan Condition: STABLE Disposition: HOME/ ROUTINE
[2018-01-10 16:56] VITALS: BP 156/82; PULSE 81; TEMP 98.1; O2SAT 97
== END 2018-01-10 18:54 | disposition home or self-care (01) | DRG 417 ==
LOC: C.ER 15:28 → C.9E 18:41 → C.3T 20:18
PROVIDERS: ADMIT Internal Medicine Cardiovascular Disease; ATTEND Internal Medicine Cardiovascular Disease
PROC: 0DNU4ZZ Release Omentum, Percutaneous Endoscopic Approach (ICD-10-PCS; 2018-01-09)
PROC: 0FT44ZZ Resection of Gallbladder, Percutaneous Endoscopic Approach (ICD-10-PCS; principal; 2018-01-09 12:45)
DX: K80.12 Calculus of gallbladder with acute and chronic cholecystitis without obstruction (principal); K85.10 Biliary acute pancreatitis without necrosis or infection; I10 Essential (primary) hypertension; K82.8 Other specified diseases of gallbladder; K66.0 Peritoneal adhesions (postprocedural) (postinfection); K83.8 Other specified diseases of biliary tract